=== PATIENT | female | born 1990 | race Caucasian/White ===

== ENCOUNTER 2023-07-23 16:32 | Inpatient (IN) | payer OTHER, SELFPAY ==
--- NOTE | ~2023-07-23 | CT_ITS ---
EXAMINATION: CT FACIAL BONES WITH CONTRAST CLINICAL INFORMATION: Facial swelling, dental pain COMPARISON: MRI brain on 01/27/2019. TECHNIQUE: Multidetector CT acquisition of the maxillofacial region is obtained with 85 mL Omnipaque 350. Multiplanar reformats are acquired and utilized for image interpretation. This CT examination was performed using dose optimization techniques as appropriate, variously including the following: *Automated exposure control *Adjustment of mA and/or kV according to patient size (this includes techniques or standardized protocols for targeted exams where dose is matched to indication/reason for exam; i.e. extremities or head) *Use of iterative reconstruction technique DLP: 454 mGy-cm FINDINGS: There is inflammatory stranding involving the soft tissues along the right mandible and crossing midline to involve the left premandibular fascia. There is associated mild thickening of the overlying skin. No fluid or gas collection identified. Multiple bilateral level Ia and II lymph nodes. For reference, 9 mm right level Ia node and 10 mm level IIa nodes. Multifocal dental caries are seen involving multiple maxillary and mandibular tooth. No periapical lucencies. Mild mucosal thickening of the bilateral maxillary sinuses. The remaining paranasal sinuses as well as the major drainage pathways are patent. No polypoid soft tissues within the nasal cavities. There is perforation of the anterior cartilaginous nasal septum (series 3, image 157 of 205). Fovea ethmoidalis and olfactory grooves are symmetric in depth. The bony orbits are intact. Internal carotid arteries remain well covered with bone. Mastoid air cells and middle ear cavities are clear. The TMJs are normal. CT/CT facial bones w IV con IMPRESSION: -Inflammatory stranding involving the subdermal tissues along the right mandible and crossing midline to involve the left premandibular fascia, suspicious for cellulitis. No fluid or gas collection identified. -Multifocal dental caries involving multiple maxillary and mandibular teeth. -Perforation of the anterior cartilaginous nasal septum. Differential considerations include idiopathic, trauma, and chronic inflammatory conditions among others.
--- NOTE | ~2023-07-23 | XR_ITS ---
EXAMINATION: XR CHEST 6:52 PM CLINICAL INFORMATION: Shortness of breath and cough COMPARISON: None available. TECHNIQUE: Frontal view of the chest was obtained. FINDINGS: No significant abnormality is noted involving the heart, lungs, mediastinum, bony thorax or soft tissues. XR/XR chest 1V IMPRESSION: Unremarkable examination.
[2023-07-23 16:50] VITALS: BP 110/61; PULSE 65; TEMP 36.1
[2023-07-23 17:28] VITALS: BMI 27.3
[2023-07-23 20:44] VITALS: BP 104/58; PULSE 69; TEMP 36.4; O2SAT 99
[2023-07-23 20:45] VITALS: BMI 28.5
[2023-07-23 21:15] VITALS: BP 110/60; PULSE 65
[2023-07-23] MEDS: Ibuprofen 600 MG TABLET PO (21:25)
[2023-07-23] MEDS: cloNIDine HCL 0.1 MG TABLET PO (21:25)
[2023-07-23] MEDS: LORazepam 1 MG TABLET PO (21:25)
[2023-07-23] MEDS: Doxepin HCl 10 MG CAPSULE PO (21:25)
[2023-07-23] MEDS: QUEtiapine Fumarate 300 MG TABLET PO (21:25)
[2023-07-24] MEDS: hydrOXYzine HCL 25 MG TABLET PO ×2 (02:20→20:38)
[2023-07-24] MEDS: Acetaminophen 325 MG TABLET 650 MG PO (02:20)
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
--- NOTE | 2023-07-24 03:42 | PC.ADMIT ---
admission note continued-methadone dose will need to be verified in the AM. patient did sign release to obtain information. Methadone 175 mg was administer at [facility] during ER stay. medications verified via the pharmacy/[facility] records and with patient input.
--- NOTE | 2023-07-24 05:53 | PC.NURSE ---
methadone-[facility] notified that patient was admitted and methadone 175mg verified. Janae was aware patient had been at [facility] prior to admission to .
--- NOTE | 2023-07-24 06:28 | HE.PHANOTE ---
Pharmacy received patients methadone verification form. Patient last doses 175 mg with [facility] on 07/22
[2023-07-24] MEDS: Ibuprofen 600 MG TABLET PO ×2 (06:55→14:38)
[2023-07-24 07:43] VITALS: BP 112/65; PULSE 75; RESP 16; TEMP 36.6; O2SAT 99
[2023-07-24] MEDS: Venlafaxine HCl ER 75 MG CAP.ER.24H PO (09:04)
[2023-07-24] MEDS: LORazepam 1 MG TABLET PO (09:05)
[2023-07-24] MEDS: methADONE HCl 20 MG/2 ML ORAL.CONC 175 MG PO (09:06)
[2023-07-24 09:31] LABS: Estimated Average Glucose 105 mg/dL; Hemoglobin A1c % 5.3 % (<6.0)
[2023-07-24 09:56] LABS: Albumin Level 3.4 g/dL (3.5-5.0); Alkaline Phosphatase 53 U/L (39-117); Anion Gap 15 (12-20); Aspartate Amino Transferase 24 U/L (5-31); Bilirubin Total 0.2 mg/dL (0.0-1.0); Blood Urea Nitrogen 15 mg/dL (9-16); Carbon Dioxide 18 mmol/L (22-29); Chloride 106 mmol/L (96-108); Cholesterol 157 mg/dL (<200); Creatinine Clr Calc Pharmacy 153.4; Estimated Glomerular Filt Rate > 60; Glucose Fasting 134 mg/dL (60-99); HDL Cholesterol 36 mg/dL (>40); LDL Cholesterol Calculated 45 mg/dL (<100); Potassium 4.4 mmol/L (3.3-5.1); Sodium 135 mmol/L (135-145); Triglycerides 380 mg/dL (<150)
[2023-07-24 09:58] LABS: Alanine Aminotransferase 24 U/L (0-31)
[2023-07-24 10:10] LABS: Thyroid Stimulating Hormone 1.98 uIU/mL (0.32-4.0)
[2023-07-24 10:20] LABS: Vitamin B12 510 pg/mL (200-900)
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
[2023-07-24] MEDS: cloNIDine HCL 0.1 MG TABLET PO ×2 (14:38→20:38)
[2023-07-24] MEDS: Amoxicillin/Potassium Clav 875 MG TABLET PO ×2 (14:38→20:38)
[2023-07-24] MEDS: Benzocaine 20 % Oral Gel 9 GM TUBE 1 APPL MUCOUS MEM (14:39)
[2023-07-24 20:08] VITALS: BP 121/69; PULSE 69; RESP 15; TEMP 35.8; O2SAT 100
[2023-07-24] MEDS: Doxepin HCl 10 MG CAPSULE PO (20:37)
[2023-07-24] MEDS: QUEtiapine Fumarate 300 MG TABLET PO (20:38)
[2023-07-25] MEDS: Benzocaine 20 % Oral Gel 9 GM TUBE 1 APPL MUCOUS MEM (05:34)
[2023-07-25 07:00] VITALS: BMI 27.9
[2023-07-25 07:14] VITALS: BP 122/65; PULSE 77; RESP 16; TEMP 36.4; O2SAT 96
[2023-07-25] MEDS: Venlafaxine HCl ER 75 MG CAP.ER.24H PO (08:18)
[2023-07-25] MEDS: Amoxicillin/Potassium Clav 875 MG TABLET PO ×2 (08:18→21:17)
[2023-07-25] MEDS: methADONE HCl 20 MG/2 ML ORAL.CONC 175 MG PO (08:21)
[2023-07-25 10:58] LABS: Adenovirus PCR Not Detected (Not Detect.); Bordetella parapertussis PCR Not Detected (Not Detect.); Bordetella pertussis PCR Not Detected (Not Detect.); Chlamydia pneumoniae PCR Not Detected (Not Detect.); Coronavirus 229E PCR Not Detected (Not Detect.); Coronavirus HKU1 PCR Not Detected (Not Detect.); Coronavirus NL63 PCR Not Detected (Not Detect.); Coronavirus OC43 PCR Not Detected (Not Detect.); Human metapneumovirus PCR Not Detected (Not Detect.); Influenza A PCR Not Detected (Not Detect.); Influenza B PCR Not Detected (Not Detect.); Mycoplasma pneumoniae PCR Not Detected (Not Detect.); Parainfluenza 1 PCR Not Detected (Not Detect.); Parainfluenza 2 PCR Not Detected (Not Detect.); Parainfluenza 3 PCR Not Detected (Not Detect.); Parainfluenza 4 PCR Not Detected (Not Detect.); RSV PCR Not Detected (Not Detect.); Rhino/Enterovirus PCR Detected (Not Detect.)
[2023-07-25 11:14] LABS: SARS-CoV-2 PCR Not Detected (Not Detect.)
[2023-07-25] MEDS: hydrOXYzine HCL 25 MG TABLET PO ×2 (12:09→21:17)
[2023-07-25] MEDS: QUEtiapine Fumarate 100 MG TABLET PO ×2 (12:09→15:34)
[2023-07-25 15:00] VITALS: PULSE 107
[2023-07-25] MEDS: cloNIDine HCL 0.1 MG TABLET PO ×2 (15:35→21:16)
[2023-07-25] MEDS: guaiFENesin 200 MG/10 ML 10 ML LIQUID PO (15:36)
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
--- NOTE | 2023-07-25 18:21 | PC.NURSE ---
Patient approached staff reporting her front tooth broke. Able to show piece of tooth. Dr. Farfan notified.
[2023-07-25 21:00] VITALS: BP 126/70; PULSE 88; RESP 18; O2SAT 98
[2023-07-25] MEDS: Doxepin HCl 10 MG CAPSULE PO (21:16)
[2023-07-25] MEDS: QUEtiapine Fumarate 400 MG TABLET PO (21:16)
[2023-07-25] MEDS: Ibuprofen 600 MG TABLET PO (21:19)
[2023-07-25 21:37] VITALS: PULSE 88
[2023-07-26 08:05] VITALS: BP 122/69; PULSE 78; RESP 16; TEMP 36.4; O2SAT 100
[2023-07-26] MEDS: Amoxicillin/Potassium Clav 875 MG TABLET PO ×2 (08:06→21:32)
[2023-07-26] MEDS: Venlafaxine HCl ER 150 MG CAP.ER.24H PO (08:07)
[2023-07-26] MEDS: methADONE HCl 20 MG/2 ML ORAL.CONC 175 MG PO (08:09)
[2023-07-26 08:13] VITALS: PULSE 78
[2023-07-26] MEDS: Ibuprofen 600 MG TABLET PO (08:25)
[2023-07-26] MEDS: guaiFENesin 200 MG/10 ML 10 ML LIQUID PO (08:26)
[2023-07-26 11:10] VITALS: BP 122/60; PULSE 87
[2023-07-26] MEDS: cloNIDine HCL 0.1 MG TABLET PO ×2 (11:13→17:54)
[2023-07-26] MEDS: QUEtiapine Fumarate 100 MG TABLET PO ×2 (11:14→17:54)
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
[2023-07-26 17:51] VITALS: BP 120/56; PULSE 99; RESP 16; TEMP 36.7; O2SAT 98
[2023-07-26 21:15] VITALS: BP 119/52; PULSE 95; RESP 18; TEMP 36.2; O2SAT 99
[2023-07-26] MEDS: Doxepin HCl 10 MG CAPSULE PO (21:32)
[2023-07-26] MEDS: QUEtiapine Fumarate 400 MG TABLET PO (21:32)
[2023-07-26] MEDS: cloNIDine HCL 0.2 MG TABLET PO (21:32)
[2023-07-27 08:45] VITALS: BP 142/59; PULSE 81; RESP 16; TEMP 36.1; O2SAT 98
[2023-07-27] MEDS: Amoxicillin/Potassium Clav 875 MG TABLET PO (08:50)
[2023-07-27] MEDS: Venlafaxine HCl ER 150 MG CAP.ER.24H PO (08:50)
[2023-07-27] MEDS: methADONE HCl 20 MG/2 ML ORAL.CONC 175 MG PO (08:52)
[2023-07-27] MEDS: cloNIDine HCL 0.1 MG TABLET PO ×2 (09:13→15:23)
[2023-07-27] MEDS: QUEtiapine Fumarate 100 MG TABLET PO ×2 (09:14→15:23)
[2023-07-27] MEDS: Ibuprofen 600 MG TABLET PO (09:15)
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
[2023-07-27 11:44] LABS: MANUAL DIFF FLAG NO
[2023-07-27 11:51] LABS: Basophils Absolute Auto 0.1 X10*3/uL (0.0-0.2); Basophils Percent Auto 0.8 % (0-2); Eosinophils Absolute Auto 0.2 X10*3/uL (0.0-0.4); Eosinophils Percent Auto 3.2 % (0-4); Hematocrit 39.6 % (37.0-47.0); Hemoglobin 12.6 g/dl (12.0-16.0); Imm Gran Abs Auto 0.32 X10*3/uL (0.00-0.03); Imm Gran Pct Auto 4.4 % (0.0-0.4); Lymphocytes Absolute Auto 3.3 X10*3/uL (1.2-4.9); Lymphocytes Percent Auto 45.4 % (20-40); Mean Corpuscular HGB Conc 31.8 g/dl (31.0-35.0); Mean Corpuscular Volume 84.8 fL (80.0-98.0); Mean Platelet Volume 9.8 fL (9.4-12.3); Monocytes Absolute Auto 0.5 X10*3/uL (0.1-1.2); Monocytes Percent Auto 6.9 % (2-11); NRBC Pct Auto 1.3 /100WBC (0.0-0.2); Neutrophils Absolute Auto 2.8 x10*3/uL (2.0-8.3); Neutrophils Percent Auto 39.3 % (45-73); Platelet Count 187 X10*3/uL (160-400); Red Blood Count 4.67 X10*6/uL (4.20-5.50); Red Cell Distribution Width 14.5 % (11.0-16.0); White Blood Count 7.2 X10*3/uL (4.8-10.8)
--- NOTE | 2023-07-27 12:04 | ECG_ITS ---
Test Reason : check qtc Blood Pressure : / mmHG Vent. Rate : 068 BPM Atrial Rate : 068 BPM P-R Int : 166 ms QRS Dur : 084 ms QT Int : 438 ms P-R-T Axes : 072 057 052 degrees QTc Int : 465 ms Normal sinus rhythm Normal ECG No previous ECGs available absent v6 Referred By: Denice Verduzco Electronically Signed By:CL PADILLA MD
[2023-07-27] MEDS: guaiFENesin 200 MG/10 ML 10 ML LIQUID PO (12:08)
[2023-07-27] MEDS: Benzonatate 100 MG CAPSULE PO (12:08)
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
[2023-07-27] MEDS: Acetaminophen 325 MG TABLET 650 MG PO ×2 (13:26→21:24)
[2023-07-27] MEDS: Ibuprofen 800 MG TABLET PO ×2 (13:27→21:23)
[2023-07-27] MEDS: levoFLOXacin 750 MG TABLET PO (13:29)
[2023-07-27] MEDS: iohexoL 350 MG/ML 100 ML INFUS..BTL IV (14:17)
[2023-07-27 15:20] VITALS: BP 112/54; PULSE 73
--- NOTE | 2023-07-27 17:51 | PC.NURSE ---
Reported right sided facial pain this am due to broken tooth right lower. Rated pain #6 on scale 1-10(10 worse) and received Ibuprofen 600mg po at 0915. Augmentin prescribed, dose #[address] Traylor notified of continued tooth pain with report of slight right sided facial swelling. Afebrile, temp 97.0 temporal. Hospitalist consult ordered. Rated right sided facial pain #4 when reassessed at 1100. earl Doyleist up to evaluate at 1120.Tooth extraction/possible root canal required per hospitalist assessment. lore Doyle, in contact with Dr Traylor, covering psych prescriber. CBCD, Levaquin, Ibuprofen dosage increased ,EKG due to Levaquin order, CT scan with contrast face ordered. Hospitalist recommendation: given Ibuprofen with Tylenol when given prn and utilize prn Oragel. Ibuprofen 800 mg and Tylenol 650 mg given po at 1327 for right sided facial pain #5 on scale 1-10(10 worse), Levaquin 750mg po initiated after reviewing administration time with lore Doyle. IV #20 gauge placed in right posterior wrist at 1357 by ICU nurse, Lizzy. Pt tolerated well. Tolerated CT scan face well. All test results reviewed by lore Doyle. Levaquin to continue, full liquid diet for comfort, and can cover area with moistened warm gauze to prevent air from getting to area increasing sensitivity
[2023-07-27 21:05] VITALS: BP 105/57; PULSE 68; RESP 16; TEMP 36.3; O2SAT 100
[2023-07-27] MEDS: QUEtiapine Fumarate 400 MG TABLET PO (21:23)
[2023-07-27] MEDS: Doxepin HCl 10 MG CAPSULE PO (21:23)
[2023-07-27] MEDS: cloNIDine HCL 0.2 MG TABLET PO (21:23)
[2023-07-28 08:24] VITALS: BP 108/54; PULSE 68; RESP 16; TEMP 36.1; O2SAT 100
[2023-07-28] MEDS: methADONE HCl 20 MG/2 ML ORAL.CONC 175 MG PO (08:37)
[2023-07-28] MEDS: Venlafaxine HCl ER 150 MG CAP.ER.24H PO (08:43)
[2023-07-28] MEDS: Ibuprofen 800 MG TABLET PO (08:56)
[2023-07-28] MEDS: Acetaminophen 325 MG TABLET 650 MG PO ×2 (08:56→15:50)
[2023-07-28] MEDS: QUEtiapine Fumarate 100 MG TABLET PO ×2 (08:57→15:51)
[2023-07-28] MEDS: cloNIDine HCL 0.1 MG TABLET PO ×2 (08:57→15:50)
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
[2023-07-28 09:48] LABS: HCV Log PCR 3.71 Log IU/mL (NOT DETECTED); HepC Viral Load 5150 IU/mL (NOT DETECTED)
[2023-07-28] MEDS: levoFLOXacin 750 MG TABLET PO (12:09)
[2023-07-28 15:48] VITALS: BP 101/54; PULSE 77; RESP 16; TEMP 36.2; O2SAT 99
[2023-07-28 19:50] VITALS: BP 106/53; PULSE 76; RESP 15; TEMP 36.3; O2SAT 99
[2023-07-28] MEDS: cloNIDine HCL 0.2 MG TABLET PO (21:17)
[2023-07-28] MEDS: Doxepin HCl 25 MG CAPSULE PO (21:17)
[2023-07-28] MEDS: QUEtiapine Fumarate 400 MG TABLET PO (21:17)
--- NOTE | 2023-07-28 21:55 | PC.NURSE ---
Alyssa is A/O. Ordered full liquid diet on the 28[address] head [address], with DX cellulites of right maxillary, treatment plan of possible extraction/root canal. Denies pain or discomfort with chewing, reports she is hungry. Went to bed after HS meds, continues to be isolating, withdrawn, guarded with limited engagement 1:1. No behavior issues, safe on the unit.
[2023-07-29] MEDS: guaiFENesin 200 MG/10 ML 10 ML LIQUID PO (02:20)
[2023-07-29] MEDS: Throat Lozenge, Medicated LOZENGE 1 LOZENGE MUCOUS MEM (02:20)
[2023-07-29] MEDS: Venlafaxine HCl ER 150 MG CAP.ER.24H PO (08:26)
[2023-07-29] MEDS: methADONE HCl 20 MG/2 ML ORAL.CONC 175 MG PO (08:27)
[2023-07-29] MEDS: cloNIDine HCL 0.1 MG TABLET PO ×2 (08:58→16:03)
[2023-07-29] MEDS: QUEtiapine Fumarate 100 MG TABLET PO ×2 (08:58→16:04)
[2023-07-29 09:03] VITALS: BP 107/77; PULSE 97; RESP 16; TEMP 36.2; O2SAT 99
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
[2023-07-29] MEDS: levoFLOXacin 750 MG TABLET PO (12:42)
--- NOTE | 2023-07-29 18:05 | PC.NURSE ---
Patient diet changed to soft.
[2023-07-29 20:10] VITALS: BP 104/51; PULSE 71; RESP 15; TEMP 36.5; O2SAT 100
[2023-07-29] MEDS: cloNIDine HCL 0.2 MG TABLET PO (20:51)
[2023-07-29] MEDS: Doxepin HCl 25 MG CAPSULE PO (20:51)
[2023-07-29] MEDS: QUEtiapine Fumarate 400 MG TABLET PO (20:51)
[2023-07-29] MEDS: Ibuprofen 800 MG TABLET PO (20:55)
[2023-07-29] MEDS: Acetaminophen 325 MG TABLET 650 MG PO (20:55)
[2023-07-30 07:20] VITALS: BP 95/45; PULSE 78; TEMP 36.2; O2SAT 100
[2023-07-30] MEDS: Venlafaxine HCl ER 150 MG CAP.ER.24H PO (08:58)
[2023-07-30] MEDS: methADONE HCl 20 MG/2 ML ORAL.CONC 175 MG PO (08:59)
[2023-07-30] MEDS: QUEtiapine Fumarate 100 MG TABLET PO (09:56)
--- NOTE | 2023-07-30 10:03 | PC.NURSE ---
Alyssa is alert, fully oriented, pleasant and cooperative with care. She denies ideation, plan or intent to harm self or others. She verbalizes understanding of discharge plan including appointments and medications.
== END 2023-07-30 10:31 | disposition home or self-care (01) | DRG 755 ==
LOC: HO.PM5 19:34 → HO.PADLT16 19:35
PROVIDERS: Clinical Nurse Specialist Psychiatric/Mental Health, Adult; Physician Assistant; Admitting Provider Psychiatry & Neurology Psychiatry; PCP Family Medicine; Visit Provider Psychiatry & Neurology Psychiatry
DX: F43.12 Post-traumatic stress disorder, chronic (principal); R45.851 Suicidal ideations; F11.20 Opioid dependence, uncomplicated; F17.210 Nicotine dependence, cigarettes, uncomplicated; F14.20 Cocaine dependence, uncomplicated; J20.6 Acute bronchitis due to rhinovirus; K08.89 Other specified disorders of teeth and supporting structures; F19.10 Other psychoactive substance abuse, uncomplicated; Z59.01 Sheltered homelessness; Z71.6 Tobacco abuse counseling; Z20.822 Contact with and (suspected) exposure to COVID-19; Z79.899 Other long term (current) drug therapy
CPT/HCPCS: 36415; 70487; 71045; 80053; 80061; 82607; 82746; 83036; 84443; 85025; 87522; 87633; 93005; Q9967

== ENCOUNTER → 2023-07-23 16:32 | Outpatient (BNV) | payer OTHER, SELFPAY | PROVIDERS: Admitting Provider Psychiatry & Neurology Psychiatry; PCP Family Medicine; Visit Provider Physician Assistant | DX: Z02.2 Encounter for examination for admission to residential institution (principal) | CPT/HCPCS: 99429; 99499 ==

== ENCOUNTER → 2023-07-23 16:32 | Outpatient (BNV) | payer OTHER, SELFPAY | PROVIDERS: Admitting Provider Psychiatry & Neurology Psychiatry; PCP Family Medicine; Visit Provider Psychiatry & Neurology Psychiatry | DX: F14.20 Cocaine dependence, uncomplicated (principal); F11.20 Opioid dependence, uncomplicated; F43.12 Post-traumatic stress disorder, chronic | CPT/HCPCS: 99231; 99232; 99233 ==

== ENCOUNTER 2023-09-03 01:45 | Emergency (ER) | payer OTHER, SELFPAY ==
--- NOTE | ~2023-09-03 | XR_ITS ---
EXAMINATION: XR CHEST CLINICAL INFORMATION: Cough. COMPARISON: 07/24/2023. TECHNIQUE: 2 views of the chest were obtained. FINDINGS: No significant abnormality is noted involving the heart, lungs, mediastinum, bony thorax or soft tissues. XR/XR chest 2V IMPRESSION: Unremarkable examination.
[2023-09-03 02:07] VITALS: BP 137/67; PULSE 72; RESP 16; TEMP 36.7; O2SAT 99; BMI 26.6
[2023-09-03 04:15] LABS: Influenza A PCR NEGATIVE (Negative); Influenza B PCR NEGATIVE (Negative); Resp Syncy Virus RNA Qual PCR NEGATIVE (Negative); SARS COV2 PCR INHOUSE NEGATIVE (Negative)
[2023-09-03 04:52] VITALS: BP 131/86; PULSE 68; RESP 14; TEMP 36.5; O2SAT 100
--- NOTE | 2023-09-03 05:17 | ED_ITS ---
HPI - URI/Sore Throat General Chief Complaint: Upper Respiratory Symptoms Stated Complaint: flu like symptoms Time Seen by Provider: 09/03/23 05:14 Source: patient Mode of arrival: ambulatory Limitations: no limitations History of Present Illness HPI Narrative: 32 yo female with hx of opiate use disorder, smoker, PTSD here with cough for 2 weeks some chills - has no INH, no travel no sick contacts no getting better. MD elicited complaint: cough Pertinent past history: asthma Onset (ago): week(s) (2) Consistency: constant Severity: moderate Description of mucous: clear and yellow Able to tolerate fluids by mouth: Yes Exacerbating factors: other (coughing) Relieving factors: nothing Associated symptoms: chills, cough and shortness of breath Treatments prior to arrival: none Related Data Home Medications Medication Instructions Recorded Confirmed methadone 175 mg PO DAILY 07/24/23 07/24/23 Previous Rx's Medication Instructions Recorded clonidine HCl 0.2 mg tablet 0.2 mg PO QID PRN anxiety 30 days 07/29/23 #120 tabs doxepin 25 mg capsule 25 mg PO BEDTIME 30 days #30 caps 07/29/23 ibuprofen 600 mg tablet 600 mg PO Q6H PRN moderate pain 30 07/29/23 days #120 tabs levofloxacin 750 mg tablet 750 mg PO DAILY #4 tabs 07/29/23 quetiapine 100 mg tablet 100 mg PO BID PRN anxiety 30 days 07/29/23 #60 tabs quetiapine 400 mg tablet 400 mg PO BEDTIME 30 days #30 tabs 07/29/23 venlafaxine 150 mg 150 mg PO DAILY 30 days #30 caps 07/29/23 capsule,extended release 24 hr albuterol sulfate 90 mcg/actuation 2 puff inhalation Q4H PRN 09/03/23 aerosol inhaler shortness of breath or wheezing #6.7 grams azithromycin 250 mg tablet See Rx Instructions PO .COMPLEX #6 09/03/23 tabs prednisone 20 mg tablet 40 mg (2 x 20 mg) PO DAILY 5 days 09/03/23 #10 tabs Allergies Allergy/AdvReac Type Severity Reaction Status Date / Time No Known Allergies Allergy Unverified 06/16/20 19:19 [No Known Allergies*] Review of Systems Review of Systems: Constitutional : No Fever, No Chills ENT/Mouth : No Hoarseness, No sore throat, No Rhinorrhea Eyes: No Redness, No Discharge, No Vision Changes Cardiovascular : No Chest Pain, positive SOB, positive Dyspnea on Exertion, No Edema Respiratory : positive Cough, pos Sputum, positive Wheezing, Gastrointestinal : No Nausea, No Vomiting, No Diarrhea, No abdominal Pain Genitourinary : No Dysuria, No Hematuria Musculoskeletal : No joint pain, No Myalgias Skin : No rash Neuro : No Weakness, No Numbness, No Headache Psych : No anxiety, depression Heme/Lymph: No Bruising, No Bleeding Endocrine : No Polyuria, No Polydipsia All other systems reviewed and are negative [facility] [place] Past Medical History Attestation statement: The following information was validated with the patient. Source: old records reviewed Medical History Routine medical exam Polysubstance abuse Opioid dependence Social History Social History Household Members: None Household Members Other:: retirement room Housing: Apartment Do you presently have visiting nurse or other home services: No Patient Tobacco Use Status: Current everyday Tobacco user Tobacco use type: Cigar Cigarette Packs Per Day: 0.5 Cigarettes Per Day: 10.0 Years Smoked: ''a few years'' e-Cigarette/Vaping Use: Never Used Substance Use Type: Crack/Cocaine Advance Directives: Yes Advance Directives Information Provided: Yes Advance Directives on File: No service: No Sexual orientation: Straight/Heterosexual Physical Exam Vital Signs: Vital Signs: Last Vital Signs Temp 97.7 F 09/03/23 04:52 Pulse 68 09/03/23 04:52 Resp 14 09/03/23 04:52 BP 131/86 09/03/23 04:52 Pulse Ox 100 09/03/23 04:52 O2 Del Method Room Air 09/03/23 04:52 BMI result Body Mass Index 26.6 Appearance: Alert. Oriented X3. No acute distress. Eyes: Pupils equal, round and reactive to light. ENT: Pharynx normal. Neck: Normal inspection. Neck supple. CVS: Normal heart rate and rhythm. Pulses normal. Respiratory: No respiratory distress. Breath sounds mild diffuse rhonchi noted Abdomen: Soft and nontender. Skin: Skin warm and dry. Normal skin color. Normal skin turgor. Extremities: No lower extremity edema. No calf ttp Neuro: Oriented X 3. No motor deficit. No sensory deficit. Medical Decision Making Medical Decision Making [facility] Narrative: 32 yo female with hx of opiate use disorder, smoker, PTSD at this time persistent cough x 2 weeks with chills hx of asthma but has no INH will start on INH, steroids and zpak for likely bronchitis - not toxic, no hypoxia, no pneumonia on CXR Differential Diagnosis Differential Diagnoses: The differential diagnosis associated with the presentation includes bronchitis, pneumonia, RAD Admission/Observation Consideration of admission/observation: Escalation of care including admission/observation considered not toxic, no hypoxia, no resp distress Lab Data [facility] Lab Attestation statement: I reviewed the patient's lab results. Labs: Lab Results 09/03/23 Range/Units 03:32 Influenza Type A (PCR) NEGATIVE (Negative) Influenza Type B (PCR) NEGATIVE (Negative) RSV RNA Qual (PCR) NEGATIVE (Negative) SARS-CoV-2 RNA (RT-PCR) NEGATIVE (Negative) Independent Interpretation I performed an independent interpretation of an: Plain X-Ray (no pneumonia) Radiology Impression Discussion of test interpretation with radiology: I have reviewed the radiologist's reading. External Record Review External record reviewed: Inpatient record Prescription Management I considered prescription management with: Antibiotic and Other Discharge Plan Discharge Clinical Impression: Bronchitis Patient Disposition: Home, Self-Care Instructions: Acute Bronchitis (ED) Additional Instructions: normal chest xray and negative viral swabs, decrease your smoking. return for worsening cough, fevers, difficulty breathing or any other concerns. Prescriptions: New azithromycin 250 mg tablet See Rx Instructions .ROUTE .COMPLEX Qty: 6 0RF Rx Instructions: For 250 mg dose pack: take 500 mg today (day 1), then 250 mg for 4 days (days 2-5) prednisone 20 mg tablet 40 mg PO DAILY 5 Days Qty: 10 0RF albuterol sulfate 90 mcg/actuation HFA aerosol inhaler 2 puff inhalation Q4H PRN (Reason: shortness of breath or wheezing) Qty: 6.7 0RF No Action methadone 175 mg PO DAILY Rx Instructions: confirmed at methadone clinic [address] [place] [address] doxepin 25 mg Capsule 25 mg PO BEDTIME 30 Days Qty: 30 0RF venlafaxine 150 mg Capsule,Extended Release 24hr 150 mg PO DAILY 30 Days Qty: 30 0RF quetiapine 400 mg Tablet 400 mg PO BEDTIME 30 Days Qty: 30 0RF quetiapine 100 mg tablet 100 mg PO BID PRN (Reason: anxiety) 30 Days Qty: 60 0RF clonidine HCl 0.2 mg tablet 0.2 mg PO QID PRN (Reason: anxiety) 30 Days Qty: 120 0RF ibuprofen 600 mg tablet 600 mg PO Q6H PRN (Reason: moderate pain) 30 Days Qty: 120 0RF levofloxacin 750 mg tablet 750 mg PO DAILY Qty: 4 0RF
[2023-09-03] MEDS: Albuterol Sulfate 90 MCG 8 GM INHALER 2 PUFF INHALE (05:32)
== END 2023-09-03 05:44 | disposition home or self-care (01) ==
PROVIDERS: Emergency Provider Emergency Medicine
DX: J40 Bronchitis, not specified as acute or chronic (principal); R06.02 Shortness of breath; R05.9 Cough, unspecified; F17.210 Nicotine dependence, cigarettes, uncomplicated; Z20.822 Contact with and (suspected) exposure to COVID-19; Z20.828 Contact with and (suspected) exposure to other viral communicable diseases; Z71.6 Tobacco abuse counseling
CPT/HCPCS: 0241U; 71046; 99283; 99284

== ENCOUNTER 2023-11-13 00:46 | Emergency (ER) | payer OTHER, SELFPAY ==
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
[2023-11-13 00:47] VITALS: BP 115/74; PULSE 82; RESP 18; TEMP 36.8; O2SAT 99; BMI 29.6
[2023-11-13 01:36] LABS: UPreg QC Valid YES; Urine Pregnancy NEGATIVE (NEGATIVE)
[2023-11-13 03:24] VITALS: BP 118/70; PULSE 92; RESP 18; TEMP 37; O2SAT 98
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
[2023-11-13] MEDS: Acetaminophen 325 MG TABLET 975 MG PO (04:44)
[2023-11-13] MEDS: Ibuprofen 400 MG TABLET PO (04:46)
--- NOTE | 2023-11-13 04:55 | PC.NURSE ---
Medicated per mar, reviewed discharge instruction with pt. pt verbalized understanding, no sign of distress.
== END 2023-11-13 05:00 | disposition home or self-care (01) ==
PROVIDERS: Emergency Provider Student in an Organized Health Care Education/Training Program
DX: Z04.1 Encounter for examination and observation following transport accident (principal); M79.18 Myalgia, other site; F17.200 Nicotine dependence, unspecified, uncomplicated
CPT/HCPCS: 70450; 71045; 72125; 81025; 99284

== ENCOUNTER 2024-01-07 13:41 | Inpatient (IN) | payer OTHER, SELFPAY ==
[2024-01-07 14:10] VITALS: BP 127/90; PULSE 74; O2SAT 97
[2024-01-07 14:43] VITALS: BP 151/68; PULSE 66; RESP 18; TEMP 36.6; O2SAT 100; BMI 25.5
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
[2024-01-07] MEDS: diphenhydrAMINE HCL 50 MG/ML VIAL IM (15:46)
[2024-01-07] MEDS: Metoclopramide HCl 10 MG/2 ML VIAL IM (15:46)
[2024-01-07] MEDS: methADONE HCl 20 MG/2 ML ORAL.CONC 40 MG PO (16:05)
--- NOTE | 2024-01-07 16:43 | HE.PHANOTE ---
Methadone 205 mg verified with [facility] 01/07/24
[2024-01-07 17:09] LABS: Appearance Urine Cloudy; Color Urine Dark Yellow; Glucose Urine UA Negative (Negative); Leukocyte Esterase Urine Trace (Negative); Nitrite Urine Negative (Negative); PH >= 9.0 (5.0-9.0); Specific Gravity - Urine >= 1.030 (1.005-1.025); UMIC TRIGGER UACC YES; Urine Blood Negative (Negative); Urine Ketones 80 mg/dL (Negative); Urine Protein 100 (2+) mg/dL (Neg-Trace)
[2024-01-07 17:11] LABS: Hemoglobin 14.9 g/dl (12.0-16.0); Mean Corpuscular Volume 84.8 fL (80.0-98.0); PLT CLUMP 1; Red Cell Distribution Width 12.9 % (11.0-16.0); SCAN SMEAR FLAG 1
[2024-01-07 17:13] LABS: Basophils Percent Auto 0.2 % (0-2); Hematocrit 45.7 % (37.0-47.0); Imm Gran Abs Auto 0.03 X10*3/uL (0.00-0.03); Imm Gran Pct Auto 0.3 % (0.0-0.4); Lymphocytes Percent Auto 9.7 % (20-40); Mean Corpuscular HGB Conc 32.6 g/dl (31.0-35.0); Mean Corpuscular Hemoglobin 27.6 pg (27.0-33.0); Mean Platelet Volume 9.3 fL (9.4-12.3); Monocytes Absolute Auto 0.1 X10*3/uL (0.1-1.2); Monocytes Percent Auto 1.3 % (2-11); Neutrophils Absolute Auto 9.1 x10*3/uL (2.0-8.3); Neutrophils Percent Auto 88.5 % (45-73); Red Blood Count 5.39 X10*6/uL (4.20-5.50); UPreg QC Valid YES; Urine Pregnancy NEGATIVE (NEGATIVE)
[2024-01-07 17:19] LABS: Amphetamine Screen Urine Not Detected (Not Detect); Barbiturates, Urine Not Detected (Not Detect); Benzodiazepines Screen Urine Not Detected (Not Detect); Cannabinoid Screen Urine POSITIVE (Not Detect); Cocaine Screen Urine POSITIVE (Not Detect); Fentanyl, urine POSITIVE (Not Detect); Opiate Screen Urine POSITIVE (Not Detect); Phencyclidine Screen Urine Not Detected (Not Detect)
[2024-01-07 17:22] LABS: MANUAL DIFF FLAG NO; Platelet Count 248 X10*3/uL (160-400); White Blood Count 10.3 X10*3/uL (4.8-10.8)
[2024-01-07 17:24] LABS: Ethanol < 10 mg/dL
[2024-01-07 17:26] LABS: Alanine Aminotransferase 134 U/L (0-31); Albumin Level 4.7 g/dL (3.5-5.0); Alkaline Phosphatase 63 U/L (39-117); Anion Gap 17 (12-20); Aspartate Amino Transferase 115 U/L (5-31); Bacteria Urine Trace (None Seen); Blood Urea Nitrogen 14 mg/dL (9-16); Calcium 9.9 mg/dL (8.4-10.2); Carbon Dioxide 20 mmol/L (22-29); Chloride 107 mmol/L (96-108); Estimated Glomerular Filt Rate > 60; Glucose Random 130 mg/dL (60-115); Hyaline Casts Urine 0-2 /LPF (0-2); Lipase 9 U/L (8-78); Magnesium 2.2 mg/dL (1.6-2.6); Potassium 3.6 mmol/L (3.3-5.1); RBC Urine 0-2 /HPF (0-2); Sodium 140 mmol/L (135-145); Total Protein 9.1 g/dL (6.5-8.0); WBC Urine 0-5 /HPF (0-5)
[2024-01-07] MEDS: ondansetron HCL 4 MG/2 ML VIAL IM (17:26)
[2024-01-07 17:29] LABS: Salicylate < 5.0 mg/dL (15-30)
[2024-01-07 17:32] VITALS: BP 142/78; PULSE 57; RESP 16; TEMP 36.4; O2SAT 100
[2024-01-07] MEDS: methADONE HCl 20 MG/2 ML ORAL.CONC 165 MG PO (17:52)
[2024-01-07] MEDS: Magnesium Hydrox/Alum Hydrox 30 ML ORAL.SUSP 15 ML PO (18:02)
[2024-01-07] MEDS: LORazepam 2 MG/ML VIAL 1 MG IM (18:03)
--- NOTE | 2024-01-07 18:26 | PC.NURSE ---
pt a&o x3, calm, and cooperative. pt medicated multiple times for nausea/vomiting. pt then given 30 minutes before PO med administration. pt asked if she wanted to be medicated now with methadone if nausea subsided. pt educated that if she vomits up methadone, she will not be able to get more. pt agreed that she felt better and wanted to take methadone 30 min after nausea med administration. approximately 20-25 min after methadone dose given, pt vomited large amount of watery, non-bloody emesis on floor. pt now resting quietly on stretcher, blanket and jluis-bag given. MD pedro aware. plan of care ongoing.
--- NOTE | 2024-01-07 19:11 | ECG_ITS ---
Test Reason : GEN MED Blood Pressure : / mmHG Vent. Rate : 067 BPM Atrial Rate : 067 BPM P-R Int : 156 ms QRS Dur : 084 ms QT Int : 574 ms P-R-T Axes : 066 067 066 degrees QTc Int : 606 ms Normal sinus rhythm Minimal voltage criteria for LVH, may be normal variant ( Sokolow-Sommer ) Prolonged QT Abnormal ECG When compared with ECG of 27-JUL-2023 12:26, QT has lengthened Referred By: Emily Harrington Electronically Signed By:CE YOO MD
[2024-01-07] MEDS: LORazepam 2 MG/ML VIAL 1 MG IVPUSH (20:12)
[2024-01-07] MEDS: 0.9 % Sodium Chloride 1,000 ML 999 ML IV (20:15)
[2024-01-07] MEDS: Magnesium Sulfate/H2O 2 GM/50 ML PIGGYBACK IV (20:15)
[2024-01-07 20:44] VITALS: BP 132/89; PULSE 67; RESP 18; O2SAT 100
--- NOTE | 2024-01-07 20:46 | P.HPHOSP_ITS ---
History of Present Illness Date of Service: 01/07/24 Chief Complaint: Nausea and vomiting This is a 33-year-old female with pertinent history of IV polysubstance use disorder, PTSD who presents to the emergency department for evaluation of nausea and vomiting. Patient states she is here as she tried to self detox at home. Patient has been having multiple episodes of nausea and vomiting. No blood in vomitus. Admits anxiety but denies abdominal discomfort. No fever, chills. She last used IV heroin 1-2 days prior to presentation. States she lost took methadone 2 days ago. Is compliant with Seroquel and p.r.n. clonidine. No chest discomfort, palpitations, shortness of breath, changes in urinary or bowel habits. In the emergency department, patient was given p.o. methadone and IV lorazepam. She continued to have multiple episodes of nausea and vomiting and was unable to tolerate p.o.. Review of Systems 2 Constitutional: Constitutional: Reports fatigue and Reports malaise Cardiovascular: Cardiovascular: Reports no additional cardiovascular complaints Respiratory: Respiratory: Reports no additional respiratory complaints Gastrointestinal: Gastrointestinal: Reports nausea and Reports vomiting Genitourinary: Genitourinary: Reports no additional female genitourinary complaints Endocrine: Endocrine: Reports fatigue PMFSH Medical History Routine medical exam Polysubstance abuse Opioid dependence Pertinent family history: No family history of early CAD Social History Household Members: None Household Members Other:: [facility] room Housing: Apartment Do you presently have visiting nurse or other home services: No Patient Tobacco Use Status: Current everyday Tobacco user Tobacco use type: Cigar Cigarette Packs Per Day: 0.5 Cigarettes Per Day: 10.0 Years Smoked: ''a few years'' Smoked in Last 30 Days: Yes e-Cigarette/Vaping Use: Never Used Use of substances other than those prescribed or required for medical reasons: Yes Substance Use Type: Heroin Advance Directives: No Advance Directives Information Provided: No Nutrition Risks: No Nutritional Risk service: No Sexual orientation: Straight/Heterosexual Meds Allergies Allergy/AdvReac Type Severity Reaction Status Date / Time No Known Allergies Allergy Verified 01/07/24 14:45 [No Known Allergies*] Active Medications: Current Medications Magnesium Sulfate (Magnesium Sulfate/H2o) 2 gm in 50 mls @ 25 mls/hr IV ONCE ONE Stop: 01/07/24 21:42 Last Admin: 01/07/24 20:15 Dose: 25 mls/hr Sodium Chloride (Ns) 1,000 mls @ 100 mls/hr IVCONT .Q10H JOSESITO Potassium Chloride (Potassium Chloride/H20) 10 meq in 100 mls @ 100 mls/hr IV Q1H JOSESITO Stop: 01/08/24 00:44 Home Medications ?Medication ?Instructions ?Recorded ?Confirmed ?Last Taken ?Type methadone 175 mg PO DAILY 07/24/23 07/24/23 07/22/23 09:30 History Physical Exam 2 Vital Signs and Narrative: Vital Signs: Last Vital Signs Temp 97.5 F 01/07/24 17:32 Pulse 67 01/07/24 20:44 Resp 18 01/07/24 20:44 BP 132/89 01/07/24 20:44 Pulse Ox 100 01/07/24 20:44 O2 Del Method Room Air 01/07/24 20:44 BMI result Body Mass Index 25.5 Middle-aged female lying in bed in no distress Neck supple, no JVD Regular rate and rhythm, S1-S2 heard Regular breath sounds bilaterally, no wheezing or crackles appreciated Abdomen soft nontender, no guarding, no rigidity Patient is awake, alert and oriented to self, place, time and person ; no focal motor deficit Psych: Normal mood No pedal edema Results Labs 01/07/24 16:54 01/07/24 16:54 Labs: Laboratory Results - last 24 hr 01/07/24 16:54 MCV 84.8 MCH 27.6 MCHC 32.6 RDW 12.9 Plt Count 248 D MPV 9.3 L Immature Gran % (Auto) 0.3 Neut % (Auto) 88.5 H Lymph % (Auto) 9.7 L [place] % (Auto) 1.3 L Eos % (Auto) 0.0 Baso % (Auto) 0.2 Lymph # (Auto) 1.0 L [place] # (Auto) 0.1 Eos # (Auto) 0.0 Baso # (Auto) 0.0 Abs Immat Gran (auto) 0.03 Absolute Neuts (auto) 9.1 H Absolute Nucleated RBC 0.000 Nucleated RBC % (auto) 0.0 Anion Gap 17 Estim Creat Clear Calc 123.0 Estimated GFR > 60 Random Glucose 130 H Calcium 9.9 D Magnesium 2.2 Total Bilirubin 1.0 AST 115 H ALT 134 H Alkaline Phosphatase 63 Total Protein 9.1 H Albumin 4.7 Lipase 9 Urine Color Dark Yellow Urine Appearance Cloudy Urine pH >= 9.0 Ur Specific [place] >= 1.030 H Urine Protein 100 (2+) H Urine Glucose (UA) Negative Urine Ketones 80 Urine Blood Negative Urine Nitrite Negative Ur Leukocyte Esterase Trace H Urine RBC 0-2 Urine WBC 0-5 Ur Squamous Epith Cells 6-10 Urine Bacteria Trace Hyaline Casts 0-2 Urine Test NEGATIVE Salicylates < 5.0 L Urine Opiates Screen POSITIVE H Urine Fentanyl Screen POSITIVE H Ur Barbiturates Screen Not Detected Ur Phencyclidine Scrn Not Detected Ur Amphetamines Screen Not Detected U Benzodiazepines Scrn Not Detected Urine Cocaine Screen POSITIVE H U Marijuana (THC) Screen POSITIVE H Ethyl Alcohol < 10 Assessment and Plan (1) Intractable cyclical vomiting with nausea: Status: Acute (2) Opiate withdrawal: Status: Acute Plan This is a 33-year-old female with pertinent history of IV polysubstance use disorder, PTSD who presents to the emergency department for evaluation of nausea and vomiting #. Intractable nausea and vomiting due to opioid withdrawal: Supportive care. Received ativan and methadone in the ER. Cautious use of methadone due to prolonged QTc, consider buprenorphine. Clear liquid diet and advance as tolerated #. Polysubstance use disorder: Consulted addiction team. UDS positive for opiates, fentanyl, cocaine and marijuana #. Prolonged QTc: Patient is on quetiapine and methadone. Monitor on tele. IV magnesium and potassium ordered. Monitor electrolytes. Cardiology consulted. Cautious use of ondansetron, methadone, seroquel #. PTSD: Patient is on high dose of Seroquel-moderate risk for prolonged QTC. Consulting psych to optimize. Continue clonidine p.r.n. DVT prophylaxis: Lovenox Full code Admit as inpatient and will require two night minimum hospital stay for management of intractable nausea and vomiting, opiate withdrawal, hemodynamic monitoring in a patient with prolonged QTC (as above), which is not possible in a lesser acute setting. Specialist consult pending Quality Stroke Does the patient have a stroke diagnosis?: No VTE Prior VTE?: No VTE Risk Level:: Medical - moderate - high VTE Device Contraindication: Treatment Not Indicated VTE Drug Contraindication: N/A - Med Ordered
[2024-01-07] MEDS: Enoxaparin Sodium 40 MG/0.4 ML SYRINGE SUBCUT (21:30)
[2024-01-07] MEDS: Potassium Chloride/H20 10 MEQ/100 ML PIGGYBACK 100 MEQ IV ×3 (21:30→23:45)
[2024-01-07] MEDS: 0.9 % Sodium Chloride 1,000 ML 100 ML IVCONT (21:31)
[2024-01-07 21:52] LABS: Thyroid Stimulating Hormone 0.62 uIU/mL (0.32-4.0)
--- NOTE | 2024-01-07 22:15 | PHA.MEDREC ---
Pharmacy Consult ? Medication Reconciliation Pharmacy has completed the medication reconciliation. Patient said she is only taking clonidine and quetiapine 400 mg.
[2024-01-07] MEDS: Acetaminophen 325 MG TABLET 650 MG PO (22:44)
[2024-01-07] MEDS: cloNIDine HCL 0.2 MG TABLET PO (22:44)
[2024-01-07] MEDS: Metoclopramide HCl 10 MG/2 ML VIAL 5 MG IVPUSH (22:44)
--- NOTE | 2024-01-07 22:49 | MHC.EDTECH ---
in the room with the patient with the nurse, attempted to complete the EKG. Patient stated I'm going to refuse for now. RN aware due to being present for the statement
[2024-01-07] MEDS: QUEtiapine Fumarate 300 MG TABLET PO (23:01)
--- NOTE | 2024-01-07 23:46 | PC.NURSE ---
Pt medicated per nov. Plan of care ongoing.
[2024-01-08 00:37] VITALS: BP 136/80; PULSE 80; RESP 16; TEMP 36.6; O2SAT 97
--- NOTE | 2024-01-08 00:39 | MHC.EDTECH ---
This tech took over care of patient at 2300,hourly rounds and vitals completed,previous tech attempted to get an EKG,pt refused, This tech was able to get patient to agree to let me do the EKG and to place her in hospital attire, EKG taken per order and tiger texted to Hospitalist. Patient is resting at this time,boyfriend at bedside,call lee in reach
[2024-01-08] MEDS: Potassium Chloride/H20 10 MEQ/100 ML PIGGYBACK 100 MEQ IV (00:44)
--- NOTE | 2024-01-08 00:47 | PC.NURSE ---
Pt medicated per nov. Plan of care ongoing.
--- NOTE | 2024-01-08 02:31 | MHC.EDTECH ---
Hourly rounds completed,patient is sleeping,boyfriend at bedside in recliner,call lee in reach.
[2024-01-08 04:00] VITALS: BP 118/94; PULSE 78; RESP 16; TEMP 36.6; O2SAT 97
--- NOTE | 2024-01-08 04:22 | MHC.EDTECH ---
Hourly rounds and vitals completed,boyfriend at bedside and call lee in reach
[2024-01-08 06:00] VITALS: BP 136/84; PULSE 92; RESP 16; TEMP 36.6; O2SAT 97
[2024-01-08] MEDS: Metoclopramide HCl 10 MG/2 ML VIAL 5 MG IVPUSH (07:11)
[2024-01-08] MEDS: Acetaminophen 325 MG TABLET 650 MG PO (07:11)
[2024-01-08] MEDS: 0.9 % Sodium Chloride 1,000 ML 100 ML IVCONT (07:13)
[2024-01-08] MEDS: 0.9 % Sodium Chloride Flush 3 ML SYRINGE IVFLUSH (07:14)
--- NOTE | 2024-01-08 08:42 | PM.EVENT ---
Event Note Date of Service: 01/08/24 Event Note: Addiction note-chart reviewed Methadone dose verified on 01/07/2024 --205mg Admitted with intractable vomiting QTc prolonged at time of admission (604) Follow up EKG QTc has shortened (454) RN note shows patient c/o body aches and requesting methadone dose Plan: -home dose of 205mg ordered Time Spent With Patient Time: Total time managing care of this patient today ____ minutes.
--- NOTE | 2024-01-08 09:00 | ECG_ITS ---
Test Reason : PROLOGED QT Blood Pressure : / mmHG Vent. Rate : 079 BPM Atrial Rate : 079 BPM P-R Int : 148 ms QRS Dur : 080 ms QT Int : 396 ms P-R-T Axes : 076 053 057 degrees QTc Int : 454 ms Normal sinus rhythm Biatrial enlargement Nonspecific T wave abnormality Abnormal ECG When compared with ECG of 07-JAN-2024 19:24, QT has shortened Referred By: Pedro Bennett Electronically Signed By:CE YOO MD
[2024-01-08] MEDS: methADONE HCl 20 MG/2 ML ORAL.CONC 205 MG PO (09:43)
[2024-01-08] MEDS: LORazepam 0.5 MG TABLET PO (11:21)
--- NOTE | 2024-01-08 11:26 | PM.DS ---
DS: Providers Provider Date of Service: 01/08/24 Date of admission: 01/07/24 21:31 Primary care physician: None Physician Consults: 01/07/24 20:36 Addiction Medicine Stat Consulting Provider: Addiction Covering Reason for consultation: qtc 606 on methadone 205mg daily Has provider been notified: No 01/07/24 23:13 Consult to Psychiatry Routine Consulting Provider: Psych Covering Reason for consultation: On Seroquel in a patient with prolonged QTC. Med optimize DS: Diagnosis Discharge Diagnosis (1) Intractable cyclical vomiting with nausea: Status: Acute (2) Opiate withdrawal: Status: Acute DS: Summary Hospital Course Hospital Course: from initial hpi: 33-year-old female with pertinent history of IV polysubstance use disorder, PTSD who presents to the emergency department for evaluation of nausea and vomiting. Patient states she is here as she tried to self detox at home. Patient has been having multiple episodes of nausea and vomiting. No blood in vomitus. Admits anxiety but denies abdominal discomfort. No fever, chills. She last used IV heroin 1-2 days prior to presentation. States she lost took methadone 2 days ago. Is compliant with Seroquel and p.r.n. clonidine. No chest discomfort, palpitations, shortness of breath, changes in urinary or bowel habits. In the emergency department, patient was given p.o. methadone and IV lorazepam. She continued to have multiple episodes of nausea and vomiting and was unable to tolerate p.o.. hospital course: Patient was admitted for intractable nausea and vomiting due to opiate withdrawal versus cyclic vomiting syndrome. She was given Ativan and methadone and symptoms resolved. She reports being able to tolerate solid food. Was seen by addiction team who recommended continuing methadone. Noted to have prolonged QT. This resolved prior to discharge even on current dose of methadone. For PTSD Seroquel will continue to be held due to prolonged QT. She should follow up with Psychiatry as outpatient. Time Attestation Discharge Coordination Time (in mins): 35 Quality: Safe Use of Opioids Does Pt have an Active Cancer Diagnosis on the Problem List?: No Quality: Stroke Does the patient have a stroke diagnosis?: No Physical Exam Vital Signs: Vital Signs: Last Vital Signs Temp 97.9 F 01/08/24 06:00 Pulse 92 01/08/24 06:00 Resp 16 01/08/24 06:00 BP 136/84 01/08/24 06:00 Pulse Ox 97 01/08/24 06:00 O2 Del Method Room Air 01/08/24 06:00 BMI result Body Mass Index 25.5 General: AO X 3, no acute distress Resp: CTA bilateral, no accessory muscles used CVS: S1,S2,RRR GI: soft, non tender, non distended Neuro: motor grossly intact, alert Psych: appropriate affect, appropriate insight DS: Data Data Completed and Pending Labs on day of discharge: Laboratory Results - last 24 hr 01/07/24 16:54 WBC 10.3 RBC 5.39 Hgb 14.9 Hct 45.7 MCV 84.8 MCH 27.6 MCHC 32.6 RDW 12.9 Plt Count 248 D MPV 9.3 L Immature Gran % (Auto) 0.3 Neut % (Auto) 88.5 H Lymph % (Auto) 9.7 L [place] % (Auto) 1.3 L Eos % (Auto) 0.0 Baso % (Auto) 0.2 Lymph # (Auto) 1.0 L [place] # (Auto) 0.1 Eos # (Auto) 0.0 Baso # (Auto) 0.0 Abs Immat Gran (auto) 0.03 Absolute Neuts (auto) 9.1 H Absolute Nucleated RBC 0.000 Nucleated RBC % (auto) 0.0 Sodium 140 Potassium 3.6 Chloride 107 Carbon Dioxide 20 L Anion Gap 17 BUN 14 Creatinine 0.69 Estim Creat Clear Calc 123.0 Estimated GFR > 60 Random Glucose 130 H Calcium 9.9 D Magnesium 2.2 Total Bilirubin 1.0 AST 115 H ALT 134 H Alkaline Phosphatase 63 Total Protein 9.1 H Albumin 4.7 Lipase 9 TSH 0.62 Urine Color Dark Yellow Urine Appearance Cloudy Urine pH >= 9.0 Ur Specific [place] >= 1.030 H Urine Protein 100 (2+) H Urine Glucose (UA) Negative Urine Ketones 80 Urine Blood Negative Urine Nitrite Negative Ur Leukocyte Esterase Trace H Urine RBC 0-2 Urine WBC 0-5 Ur Squamous Epith Cells 6-10 Urine Bacteria Trace Hyaline Casts 0-2 Urine Test NEGATIVE Salicylates < 5.0 L Urine Opiates Screen POSITIVE H Urine Fentanyl Screen POSITIVE H Ur Barbiturates Screen Not Detected Ur Phencyclidine Scrn Not Detected Ur Amphetamines Screen Not Detected U Benzodiazepines Scrn Not Detected Urine Cocaine Screen POSITIVE H U Marijuana (THC) Screen POSITIVE H Ethyl Alcohol < 10 Discharge Plan Discharge Anticipated Discharge Date/Time: 01/08/24 11:24 Patient Disposition: Home, Self-Care Discharge Diagnosis: nasuea Referrals: Physician,None [Primary Care Provider] - 1 Week Discharge Medications: Continued methadone 175 mg PO DAILY Rx Instructions: confirmed at methadone clinic [address] [place] [address] quetiapine 400 mg Tablet 400 mg PO BEDTIME 30 Days Qty: 30 0RF clonidine HCl 0.2 mg tablet 0.2 mg PO QID PRN (Reason: anxiety) 30 Days Qty: 120 0RF Discharge Orders: Discharge Order (Routine); Ordered 01/08/24 Ordered By: Myron Hendricks Diet: Advance to usual diet Activity on Discharge: As tolerated Stand Alone Forms: Patient Portal Discharge page Print Language: Czech Care Plan Goals: recovery Health Concerns: n/v, hcv, qt prolongation Plan of Treatment: follow up with pcp for treatement of hcv, diet as tolerating Assessment: see above Patient Instructions: Opioid Withdrawal (ED)
--- NOTE | 2024-01-08 11:41 | PC.NURSE ---
pt verbalized tolerance of PO intake, improvement in nausea, medicated per MAR. pt requesting discharge and bus passes. admitting provider notified.
[2024-01-08 11:43] VITALS: BP 123/69; PULSE 93; RESP 16; TEMP 37.2; O2SAT 96
== END 2024-01-08 11:51 | disposition home or self-care (01) | DRG 773 ==
LOC: HO.ED 19:47 → HO.EDOVER 21:34
PROVIDERS: Internal Medicine; Physician Assistant Medical; Admitting Provider Student in an Organized Health Care Education/Training Program; Emergency Provider Emergency Medicine; Visit Provider Internal Medicine
DX: F11.23 Opioid dependence with withdrawal (principal); F17.210 Nicotine dependence, cigarettes, uncomplicated; Z71.6 Tobacco abuse counseling; F43.12 Post-traumatic stress disorder, chronic; F19.10 Other psychoactive substance abuse, uncomplicated; R94.31 Abnormal electrocardiogram [ECG] [EKG]; T40.3X6A Underdosing of methadone, initial encounter
CPT/HCPCS: 36415; 80053; 80179; 80307; 81001; 81025; 83690; 83735; 84443; 85025; 93005; 99285; J1200; J1650; J2060; J2405; J2765; J3475; J3480

== ENCOUNTER → 2024-01-07 19:11 | Outpatient (BNV) | payer OTHER, SELFPAY | PROVIDERS: Admitting Provider Student in an Organized Health Care Education/Training Program; Emergency Provider Emergency Medicine; Visit Provider Internal Medicine Cardiovascular Disease | DX: I45.81 Long QT syndrome (principal) | CPT/HCPCS: 93010 ==

== ENCOUNTER 2024-01-07 21:31 | Outpatient (BNV) | payer OTHER, SELFPAY | END 2024-01-08 09:00 | PROVIDERS: Admitting Provider Student in an Organized Health Care Education/Training Program; Emergency Provider Emergency Medicine; Visit Provider Internal Medicine Cardiovascular Disease | DX: I45.81 Long QT syndrome (principal); I51.7 Cardiomegaly | CPT/HCPCS: 93010 ==

== ENCOUNTER → 2024-01-07 21:31 | Outpatient (BNV) | payer OTHER, SELFPAY | PROVIDERS: Admitting Provider Student in an Organized Health Care Education/Training Program; Emergency Provider Emergency Medicine; Visit Provider Student in an Organized Health Care Education/Training Program | DX: R11.15 Cyclical vomiting syndrome unrelated to migraine (principal); F11.93 Opioid use, unspecified with withdrawal | CPT/HCPCS: 99223; 99239 ==

== ENCOUNTER 2024-01-29 23:53 | Emergency (ER) | payer OTHER, SELFPAY ==
[2024-01-30] VITALS (8 sets, daily range): BP systolic 85–108; BP diastolic 35–69; PULSE 46–59; RESP 16–20; TEMP 35.6–36.7; O2SAT 96–99; BMI 25.7
--- NOTE | 2024-01-30 00:29 | ECG_ITS ---
Test Reason : SHORTNESS OF BREATH Blood Pressure : / mmHG Vent. Rate : 054 BPM Atrial Rate : 054 BPM P-R Int : 176 ms QRS Dur : 086 ms QT Int : 516 ms P-R-T Axes : 077 065 064 degrees QTc Int : 489 ms Sinus bradycardia Minimal voltage criteria for LVH, may be normal variant ( Sokolow-Sommer ) Prolonged QT Abnormal ECG When compared with ECG of 08-JAN-2024 00:25, Non-specific change in ST segment in Anterior leads Nonspecific T wave abnormality, improved in Anterolateral leads Referred By: Generic ED Physician Electronically Signed By:HANSEL SARAVIA
[2024-01-30 00:59] LABS: MANUAL DIFF FLAG NO
[2024-01-30 01:01] LABS: Basophils Percent Auto 0.4 % (0-2); Eosinophils Absolute Auto 0.1 X10*3/uL (0.0-0.4); Eosinophils Percent Auto 1.3 % (0-4); Hematocrit 37.6 % (37.0-47.0); Hemoglobin 12.3 g/dl (12.0-16.0); Imm Gran Abs Auto 0.02 X10*3/uL (0.00-0.03); Imm Gran Pct Auto 0.2 % (0.0-0.4); Lymphocytes Absolute Auto 4.3 X10*3/uL (1.2-4.9); Lymphocytes Percent Auto 47.8 % (20-40); Mean Corpuscular HGB Conc 32.7 g/dl (31.0-35.0); Mean Corpuscular Hemoglobin 28.5 pg (27.0-33.0); Mean Platelet Volume 9.4 fL (9.4-12.3); Monocytes Absolute Auto 0.5 X10*3/uL (0.1-1.2); Neutrophils Absolute Auto 4.1 x10*3/uL (2.0-8.3); Neutrophils Percent Auto 45.3 % (45-73); Platelet Count 212 X10*3/uL (160-400); Red Blood Count 4.32 X10*6/uL (4.20-5.50); Red Cell Distribution Width 13.1 % (11.0-16.0)
[2024-01-30 01:22] LABS: Alanine Aminotransferase 61 U/L (0-31); Albumin Level 4.1 g/dL (3.5-5.0); Alkaline Phosphatase 49 U/L (39-117); Anion Gap 12 (12-20); Aspartate Amino Transferase 49 U/L (5-31); Bilirubin Total 0.8 mg/dL (0.0-1.0); Blood Urea Nitrogen 17 mg/dL (9-16); Calcium 9.1 mg/dL (8.4-10.2); Carbon Dioxide 25 mmol/L (22-29); Chloride 104 mmol/L (96-108); Creatinine Clr Calc Pharmacy 111.7; Estimated Glomerular Filt Rate > 60; Glucose Random 86 mg/dL (60-115); Potassium 3.9 mmol/L (3.3-5.1); Sodium 137 mmol/L (135-145); Total Protein 7.4 g/dL (6.5-8.0)
[2024-01-30 01:35] LABS: HCG Quantitative < 2 mIU/mL; Troponin-I High Sensitivity < 2.7 ng/L (<3.5-17.0)
[2024-01-30 01:44] LABS: Appearance Urine Clear; Color Urine Dark Yellow; Glucose Urine UA Negative (Negative); Leukocyte Esterase Urine Trace (Negative); Nitrite Urine Negative (Negative); PH 5.5 (5.0-9.0); Specific Gravity - Urine >= 1.030 (1.005-1.025); UMIC TRIGGER UACC YES; Urine Blood Negative (Negative); Urine Ketones Negative (Negative); Urine Protein Trace mg/dL (Neg-Trace)
[2024-01-30 01:49] LABS: Bacteria Urine Trace (None Seen); Hyaline Casts Urine 0-2 /LPF (0-2); RBC Urine 0-2 /HPF (0-2); UACC Culture Trigger YES
[2024-01-30 01:55] LABS: Amphetamine Screen Urine Not Detected (Not Detect); Barbiturates, Urine Not Detected (Not Detect); Benzodiazepines Screen Urine Not Detected (Not Detect); Buprenorphine Scr Not Detected (Not Detect); Cannabinoid Screen Urine POSITIVE (Not Detect); Cocaine Screen Urine POSITIVE (Not Detect); Fentanyl, urine POSITIVE (Not Detect); Methadone Screen, Urine Positive (Not Detect); Opiate Screen Urine POSITIVE (Not Detect); Oxycodone Screen Urine Not Detected (Not Detect); Phencyclidine Screen Urine Not Detected (Not Detect)
--- NOTE | 2024-01-30 07:02 | ED.ARRPALP ---
HPI - Arrhythmia/Palpitations General Chief Complaint: Arrhythmia/Palpitations Stated Complaint: elevated heart rate after fall Time Seen by Provider: 01/30/24 06:55 Source: patient and old records reviewed Mode of arrival: ambulatory Limitations: no limitations History of Present Illness HPI narrative: 33 yo female with PMH of PTSD, opiate use disorder on methadone, prolonged qTC, cocaine abuse, admitted in past for intractable n/v due to opiate withdrawal who presents with c/o fell down stairs yesterday after tripping on slippers. She notes no headstrike or LOC no injury. She notes she has been anxious since then. She feels since then her heart is racing. Denies drug abuse other than smoking THC but then told she was positive for cocaine and states this isn't her first rodea. Denies CP/SOB, injury, dizziness. She tells me she is hungry. She states she always gets admitted for this - I only see one for intractable n/v due to withdrawal. MD complaint: heart racing and palpitations Onset (ago): day(s) (1) Duration: intermittent Severity: mild Context: occurred during rest and occurred during exertion Associated symptoms: anxiety Related Data Home Medications ?Medication ?Instructions ?Recorded ?Confirmed methadone 175 mg PO DAILY 07/24/23 07/24/23 Previous Rx's ?Medication ?Instructions ?Recorded clonidine HCl 0.2 mg tablet 0.2 mg PO QID PRN anxiety 30 days 07/29/23 #120 tabs Allergies Allergy/AdvReac Type Severity Reaction Status Date / Time No Known Allergies Allergy Verified 01/30/24 00:25 [No Known Allergies*] Review of Systems Review of Systems: Constitutional : No Fever, No Chills, No Fatigue ENT/Mouth : No sore throat, No Rhinorrhea Eyes: No Eye Pain, No Swelling, No Redness Cardiovascular : No Chest Pain, No SOB, No Dyspnea on Exertion, pos palpitations Respiratory : No Cough, No Sputum Gastrointestinal : No Nausea, No Vomiting, No Diarrhea, No abdominal Pain Genitourinary : No Dysuria, No Urinary Frequency, No Hematuria, Musculoskeletal : No joint pain, No Myalgias, No Joint Swelling Skin : No Skin Lesions, No rash Neuro : No Weakness, No Numbness, No Dizziness, no Headache Psych : pos Anxiety/Panic, No Depression Heme/Lymph: No Bruising, No Bleeding,No Lymphadenopathy Endocrine : No Polyuria, No Polydipsia All other systems reviewed and are negative [facility] Past Medical History Attestation statement: The following information was validated with the patient. Source: old records reviewed Medical History Routine medical exam Polysubstance abuse Opioid dependence Social History Social History Household Members: None Household Members Other:: long-term room Housing: Apartment Do you presently have visiting nurse or other home services: No Patient Tobacco Use Status: Current everyday Tobacco user Tobacco use type: Cigar Cigarette Packs Per Day: 0.5 Cigarettes Per Day: 10.0 Years Smoked: ''a few years'' Smoked in Last 30 Days: Yes e-Cigarette/Vaping Use: Never Used Use of substances other than those prescribed or required for medical reasons: Yes Substance Use Type: Marijuana Substance Use Frequency: Chronic Longstanding Advance Directives: Yes Advance Directives on File: Yes Advance Directives Date on File: 01/08/24 Do you have a plan to hurt others: No Plan Patient : No service: No Sexual orientation: Straight/Heterosexual Physical Exam Vital Signs: Vital Signs: Last Vital Signs Temp 97.8 F 01/30/24 05:44 Pulse 59 01/30/24 07:47 Resp 20 01/30/24 05:44 BP 94/69 01/30/24 07:47 Pulse Ox 98 01/30/24 05:44 O2 Del Method Room Air 01/30/24 05:44 BMI result Body Mass Index 25.7 Appearance: Alert. Oriented X3. No acute distress. Eyes: Pupils equal, round and reactive to light. ENT: Pharynx normal. atraumatic Neck: Normal inspection. Neck supple. CVS: Normal heart rate and rhythm. Pulses normal. Respiratory: No respiratory distress. Breath sounds normal. Abdomen: Soft and nontender. Skin: Skin warm and dry. Normal skin color. Normal skin turgor. Extremities: No lower extremity edema. No calf ttp Neuro: Oriented X 3. No motor deficit. No sensory deficit. Course Course Course Narrative: I SUSPECT HER LOW BP OVERNIGHT WAS DUE TO PATIENT LAYING ON HER SIDE - I WENT INTO THE ROOM AND SHE WAS ON HER SIDE AND BP WAS IN THE 80S SHE LAID ON HER BACK AND BP WAS UP TO 110. I SUSPECT ERROR AND INNACURATE READINGS NOT HYPOTENSION Medical Decision Making Medical Decision Making [facility] Narrative: 33 yo female with PMH of PTSD, palpitations, drug abuse, prolonged qtc - here with c/o palpitations and heart racing but denies real symptoms not dizzy, ortho VS not impressive not dizzy when standing she is a difficulty stick and I do not think she is dehydrated enough to get repeated IV sticks. She has no anemia, she is able to eat and drink. She also has no trauma from the fall. At this time qtc at baseline. She is positive for cocaine which could be causing her symptoms but she states that isn't possible. At this time her BPs are in error as she was laying on her side I witnessed this. Differential Diagnosis Differential Diagnoses: The differential diagnosis associated with the presentation includes anemia, dehydration, drug abuse Admission/Observation Consideration of admission/observation: Escalation of care including admission/observation considered eating, drinking, qtc better than baseline no trauma from fall 24 hours ago GCS 15 no dizziness can be managed as outpatient Lab Data [facility] Lab Attestation statement: I reviewed the patient's lab results. 01/30/24 00:52 01/30/24 00:52 Labs: Lab Results 01/30/24 01/30/24 Range/Units 00:52 01:36 WBC 9.0 (4.8-10.8) X10*3/uL RBC 4.32 (4.20-5.50) X10*6/uL Hgb 12.3 (12.0-16.0) g/dl Hct 37.6 (37.0-47.0) % MCV 87.0 (80.0-98.0) fL MCH 28.5 (27.0-33.0) pg MCHC 32.7 (31.0-35.0) g/dl RDW 13.1 (11.0-16.0) % Plt Count 212 (160-400) X10*3/uL MPV 9.4 (9.4-12.3) fL Immature Gran % (Auto) 0.2 (0.0-0.4) % Neut % (Auto) 45.3 (45-73) % Lymph % (Auto) 47.8 H (20-40) % [place] % (Auto) 5.0 (2-11) % Eos % (Auto) 1.3 (0-4) % Baso % (Auto) 0.4 (0-2) % Lymph # (Auto) 4.3 (1.2-4.9) X10*3/uL [place] # (Auto) 0.5 (0.1-1.2) X10*3/uL Eos # (Auto) 0.1 (0.0-0.4) X10*3/uL Baso # (Auto) 0.0 (0.0-0.2) X10*3/uL Abs Immat Gran (auto) 0.02 (0.00-0.03) X10*3/uL Absolute Neuts (auto) 4.1 (2.0-8.3) x10*3/uL Absolute Nucleated RBC 0.000 (0.0-0.012) X10*3/uL Nucleated RBC % (auto) 0.0 (0.0-0.2) /100WBC Sodium 137 (135-145) mmol/L Potassium 3.9 (3.3-5.1) mmol/L Chloride 104 (96-108) mmol/L Carbon Dioxide 25 (22-29) mmol/L Anion Gap 12 (12-20) BUN 17 H (9-16) mg/dL Creatinine 0.76 (0.5-1.4) mg/dL Estim Creat Clear Calc 111.7 Estimated GFR > 60 Random Glucose 86 (60-115) mg/dL Calcium 9.1 D (8.4-10.2) mg/dL Total Bilirubin 0.8 (0.0-1.0) mg/dL AST 49 H (5-31) U/L ALT 61 H (0-31) U/L Alkaline Phosphatase 49 (39-117) U/L Troponin I High Sens < 2.7 (<3.5-17.0) ng/L Total Protein 7.4 (6.5-8.0) g/dL Albumin 4.1 (3.5-5.0) g/dL Beta HCG, Quant < 2 mIU/mL Urine Color Dark Yellow Urine Appearance Clear Urine pH 5.5 (5.0-9.0) Ur Specific [place] >= 1.030 H (1.005-1.025) Urine Protein Trace (Neg-Trace) mg/dL Urine Glucose (UA) Negative (Negative) mg/dL Urine Ketones Negative (Negative) mg/dL Urine Blood Negative (Negative) Urine Nitrite Negative (Negative) Ur Leukocyte Esterase Trace H (Negative) Urine RBC 0-2 (0-2) /HPF Urine WBC 6-10 H (0-5) /HPF Ur Squamous Epith Cells 3-5 (0-2) /HPF Urine Bacteria Trace (None Seen) Hyaline Casts 0-2 (0-2) /LPF Urine Opiates Screen POSITIVE H (Not Detect) Ur Buprenorphine Scrn Not Detected (Not Detect) ng/mL Ur Oxycodone Screen Not Detected (Not Detect) ng/mL Urine Methadone Screen Positive H (Not Detect) ng/mL Urine Fentanyl Screen POSITIVE H (Not Detect) Ur Barbiturates Screen Not Detected (Not Detect) Ur Phencyclidine Scrn Not Detected (Not Detect) Ur Amphetamines Screen Not Detected (Not Detect) U Benzodiazepines Scrn Not Detected (Not Detect) Urine Cocaine Screen POSITIVE H (Not Detect) U Marijuana (THC) Screen POSITIVE H (Not Detect) Independent Interpretation I performed an independent interpretation of an: EKG Interpretation: Rate:54 Rhythm: sinus bradycardia Buck[place]: normal Normal P waves. Normal SHERRIE. Normal QRS complex. ST T wave : normal no EDDIE qTC: 489 prior studies: qtc at baseline The study has been interpreted contemporaneously by me. . External Record Review External record reviewed: Inpatient record Discharge Plan Discharge Clinical Impression: Anxiety, Palpitations Patient Disposition: Home, Self-Care Instructions: Anxiety (ED), Heart Palpitations (ED) Additional Instructions: your liver enzymes are improving, you are not anemic. your EKG marker for qtc is better than usual for you. your HR was in the 50s. continue your medications. follow up with your doctor eat and drink a lot of fluids today return for worsening symptoms, fainting, numbness, weakness, increased dizziness or any other concerns. Prescriptions: No Action methadone 175 mg PO DAILY Rx Instructions: confirmed at methadone clinic [facility] [address] clonidine HCl 0.2 mg tablet 0.2 mg PO QID PRN (Reason: anxiety) 30 Days Qty: 120 0RF Print Language: Yoruba
--- NOTE | 2024-01-30 07:23 | PC.NURSE ---
assumed care of pt at 0700. pt a&o x4, calm, and cooperative. t/w attempted to place IV and draw labs with no success. pt difficult stick due to hx of IV drug use. will ask provider to place ultrasound guided IV.
== END 2024-01-30 08:51 | disposition home or self-care (01) ==
PROVIDERS: Emergency Provider Emergency Medicine
DX: I49.9 Cardiac arrhythmia, unspecified (principal); F11.19 Opioid abuse with unspecified opioid-induced disorder; F14.19 Cocaine abuse with unspecified cocaine-induced disorder; R00.2 Palpitations; R11.2 Nausea with vomiting, unspecified; F17.210 Nicotine dependence, cigarettes, uncomplicated; F41.1 Generalized anxiety disorder; F43.0 Acute stress reaction; Z79.899 Other long term (current) drug therapy
CPT/HCPCS: 36415; 80053; 80307; 81001; 84484; 84702; 85025; 87086; 93005; 99283; 99285

== ENCOUNTER → 2024-01-30 00:29 | Outpatient (BNV) | payer OTHER, SELFPAY | PROVIDERS: Emergency Provider Emergency Medicine; Visit Provider Internal Medicine | DX: R00.1 Bradycardia, unspecified (principal); R94.31 Abnormal electrocardiogram [ECG] [EKG] | CPT/HCPCS: 93010 ==

== ENCOUNTER 2024-03-21 23:57 | Emergency (ER) | payer OTHER, SELFPAY ==
--- NOTE | 2024-03-22 | ECG_ITS ---
Test Reason : CHEST PAIN Blood Pressure : / mmHG Vent. Rate : 095 BPM Atrial Rate : 095 BPM P-R Int : 154 ms QRS Dur : 078 ms QT Int : 360 ms P-R-T Axes : 077 050 055 degrees QTc Int : 452 ms Normal sinus rhythm Right atrial enlargement Nonspecific ST abnormality Abnormal ECG When compared with ECG of 30-JAN-2024 00:40, Vent. rate has increased BY [address] no longer elevated in Inferior leads Referred By: Generic ED Physician Electronically Signed By:CE YOO MD
--- NOTE | 2024-03-22 00:10 | MHC.EDTECH ---
Patient refused to have EKG at the moment. Patient stated that needed to use the bathroom to get cleaned before EKG.
[2024-03-22 00:18] VITALS: BP 156/81; PULSE 97; RESP 18; TEMP 527.9; TEMP 982.2; O2SAT 98; BMI 27.6
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
[2024-03-22 01:49] LABS: UPreg QC Valid YES; Urine Pregnancy NEGATIVE (NEGATIVE)
[2024-03-22] MEDS: LORazepam 1 MG TABLET 2 MG PO (02:09)
[2024-03-22] MEDS: Acetaminophen 325 MG TABLET 975 MG PO (02:09)
[2024-03-22] MEDS: Ibuprofen 600 MG TABLET PO ×2 (02:09→13:34)
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
[2024-03-22 04:02] LABS: MANUAL DIFF FLAG NO
[2024-03-22 04:03] LABS: Basophils Percent Auto 0.4 % (0-2); Eosinophils Percent Auto 0.1 % (0-4); Hematocrit 36.8 % (37.0-47.0); Hemoglobin 12.1 g/dl (12.0-16.0); Imm Gran Abs Auto 0.02 X10*3/uL (0.00-0.03); Imm Gran Pct Auto 0.2 % (0.0-0.4); Lymphocytes Absolute Auto 2.6 X10*3/uL (1.2-4.9); Lymphocytes Percent Auto 27.7 % (20-40); Mean Corpuscular HGB Conc 32.9 g/dl (31.0-35.0); Mean Corpuscular Hemoglobin 28.1 pg (27.0-33.0); Mean Corpuscular Volume 85.6 fL (80.0-98.0); Monocytes Absolute Auto 0.4 X10*3/uL (0.1-1.2); Monocytes Percent Auto 4.3 % (2-11); Neutrophils Absolute Auto 6.2 x10*3/uL (2.0-8.3); Neutrophils Percent Auto 67.3 % (45-73); Platelet Count 198 X10*3/uL (160-400); White Blood Count 9.2 X10*3/uL (4.8-10.8)
[2024-03-22 04:17] LABS: Anion Gap 14 (12-20); Blood Urea Nitrogen 17 mg/dL (9-16); Calcium 9.5 mg/dL (8.4-10.2); Carbon Dioxide 25 mmol/L (22-29); Chloride 109 mmol/L (96-108); Creatinine Clr Calc Pharmacy 125.5; Estimated Glomerular Filt Rate > 60; Glucose Random 106 mg/dL (60-115); Sodium 144 mmol/L (135-145)
[2024-03-22 04:19] LABS: Acetaminophen LAB 11 mcg/mL (<30); Ethanol < 10 mg/dL; Salicylate < 5.0 mg/dL (15-30)
[2024-03-22 06:34] VITALS: BP 136/73; PULSE 81; RESP 17; TEMP 36.7; O2SAT 99
--- NOTE | 2024-03-22 07:15 | PC.NURSE ---
this RN resumed care of pt at 0645. a&ox4. vss and up to date. pt aware UA is needed in order to be seen by care team. pt requesting snacks - snacks provided. pt ate 100% of breakfast. partner bedside. pt in no apparent distress. no sob/wob noted. respirations even/unlabored. plan of care ongoing. call lee placed within reach.
--- NOTE | 2024-03-22 08:00 | PC.NURSE ---
urine obtained/sent to lab by tech. pt waiting to be seen by CARE team at this time. plan of care ongoing. call lee placed within reach.
[2024-03-22 08:13] LABS: Amphetamine Screen Urine Not Detected (Not Detect); Barbiturates, Urine Not Detected (Not Detect); Benzodiazepines Screen Urine Not Detected (Not Detect); Buprenorphine Scr Not Detected (Not Detect); Cannabinoid Screen Urine POSITIVE (Not Detect); Cocaine Screen Urine POSITIVE (Not Detect); Fentanyl, urine POSITIVE (Not Detect); Methadone Screen, Urine Positive (Not Detect); Opiate Screen Urine POSITIVE (Not Detect); Oxycodone Screen Urine Not Detected (Not Detect); Phencyclidine Screen Urine Not Detected (Not Detect)
[2024-03-22 10:24] VITALS: BP 114/47; PULSE 82; TEMP 37.1; O2SAT 99
--- NOTE | 2024-03-22 13:05 | PC.NURSE ---
pt still pending care team eval at this time. resting in room w/ lights dimmed in no apparent distress. respirations remain even/unlabored. call lee placed within reach.
[2024-03-22 13:33] VITALS: BP 133/64; PULSE 77; RESP 16; TEMP 36.7; O2SAT 100
[2024-03-22] MEDS: LORazepam 1 MG TABLET PO (13:34)
[2024-03-22] MEDS: Acetaminophen 325 MG TABLET PO (13:34)
--- NOTE | 2024-03-22 13:38 | PC.NURSE ---
pt verbalizing that she no longer wants a care team consult. provider notified/aware.
[2024-03-22 14:45] VITALS: BP 133/64; PULSE 77; RESP 16; TEMP 36.7; O2SAT 100
== END 2024-03-22 14:46 | disposition home or self-care (01) ==
PROVIDERS: Emergency Provider Emergency Medicine
DX: F43.20 Adjustment disorder, unspecified (principal); R07.9 Chest pain, unspecified; F41.9 Anxiety disorder, unspecified; Z87.828 Personal history of other (healed) physical injury and trauma
CPT/HCPCS: 36415; 80048; 80143; 80179; 80307; 81025; 85025; 93005; 99284; 99285

== ENCOUNTER → 2024-03-22 00:11 | Outpatient (BNV) | payer OTHER, SELFPAY | PROVIDERS: Emergency Provider Emergency Medicine; Visit Provider Internal Medicine Cardiovascular Disease | DX: R07.9 Chest pain, unspecified (principal) | CPT/HCPCS: 93010 ==

== ENCOUNTER 2024-03-28 02:07 | Emergency (ER) | payer OTHER, SELFPAY ==
[2024-03-28 02:15] VITALS: BP 147/76; PULSE 77; RESP 17; TEMP 36.9; O2SAT 98; BMI 27.8
[2024-03-28 02:36] LABS: Appearance Urine Clear; Color Urine Yellow; Glucose Urine UA Negative (Negative); Leukocyte Esterase Urine Trace (Negative); Nitrite Urine Negative (Negative); Specific Gravity - Urine >= 1.030 (1.005-1.025); UMIC TRIGGER UACC YES; Urine Blood Negative (Negative); Urine Ketones Negative (Negative); Urine Protein Trace mg/dL (Neg-Trace)
--- NOTE | 2024-03-28 02:36 | ED.FEMALEGU ---
HPI - Female Genitourinary General Chief complaint: Vaginal Bleeding Stated complaint: pain and bleeding after sex Time Seen by Provider: 03/28/24 02:26 Source: patient Mode of arrival: ambulatory Limitations: no limitations History of Present Illness ED Provider: manisha YOUNGBLOOD Narrative: Patient complaining of dysuria frequency and lower abdominal pain after having sexual intercourse about 2 days ago no fever no chills no nausea no vomiting no diarrhea no vaginal discharge Related Data Home Medications ?Medication ?Instructions ?Recorded ?Confirmed methadone 175 mg PO DAILY 07/24/23 07/24/23 Previous Rx's ?Medication ?Instructions ?Recorded clonidine HCl 0.2 mg tablet 0.2 mg PO QID PRN anxiety 30 days 07/29/23 #120 tabs ibuprofen 600 mg tablet 600 mg PO Q6H PRN fever or pain 03/28/24 #30 tabs Allergies Allergy/AdvReac Type Severity Reaction Status Date / Time No Known Allergies Allergy Verified 03/28/24 02:19 [No Known Allergies*] Review of Systems Review of Systems: Yes all other systems are reviewed and are negative PMFSH Past Medical History Medical History Routine medical exam Polysubstance abuse Opioid dependence Social History Social History Household Members: None Household Members Other:: [facility] room Housing: Apartment Do you presently have visiting nurse or other home services: No Patient Tobacco Use Status: Current everyday Tobacco user Tobacco use type: Cigar Cigarette Packs Per Day: 0.5 Cigarettes Per Day: 10.0 Years Smoked: ''a few years'' Smoked in Last 30 Days: No e-Cigarette/Vaping Use: Never Used Substance Use Type: Marijuana and Other Advance Directives: Yes Advance Directives on File: Yes Advance Directives Date on File: 01/08/24 Do you have a plan to hurt others: No Plan Patient : No service: No Sexual orientation: Straight/Heterosexual Physical Exam Vital Signs: Vital Signs: Last Vital Signs Temp 98.4 F 03/28/24 03:41 Pulse 77 03/28/24 03:41 Resp 17 03/28/24 03:41 BP 147/76 H 03/28/24 03:41 Pulse Ox 98 03/28/24 03:41 O2 Del Method Room Air 03/28/24 03:41 BMI result Body Mass Index 27.8 Appearance: Alert. Oriented X3. No acute distress. ENT: Pharynx normal. Oral Mucosa moist Neck: Normal inspection. Neck supple. CVS: Normal heart rate and rhythm. Pulses normal. Respiratory: No respiratory distress. Equal air entry bilateral, no wheezing/rales/rhonchi Abdomen: Soft and nontender. Bowel sounds are present, no mass palpable, no CVA tenderness Skin: Skin warm and dry. Normal skin color. Normal skin turgor. Extremities: No lower extremity edema. No calf tenderness Neuro: Oriented X 3. No motor deficit. Medications Administered Discontinued Medications Generic Name Dose Route Start Last Admin Trade Name Freq PRN Reason Stop Dose Admin Ibuprofen 600 mg 03/28/24 03:31 03/28/24 03:40 Ibuprofen 600 Mg Tablet PO 03/28/24 03:32 600 mg ONCE ONE Administration Medical Decision Making Lab Data Labs: Lab Results 03/28/24 Range/Units 02:31 Urine Color Yellow Urine Appearance Clear Urine pH 6.0 (5.0-9.0) Ur Specific [place] >= 1.030 H (1.005-1.025) Urine Protein Trace (Neg-Trace) mg/dL Urine Glucose (UA) Negative (Negative) mg/dL Urine Ketones Negative (Negative) mg/dL Urine Blood Negative (Negative) Urine Nitrite Negative (Negative) Ur Leukocyte Esterase Trace H (Negative) Urine RBC 0-2 (0-2) /HPF Urine WBC 11-20 H (0-5) /HPF Ur Squamous Epith Cells 6-10 (0-2) /HPF Urine Bacteria None Seen (None Seen) Hyaline Casts 0-2 (0-2) /LPF Discharge Plan Discharge Clinical Impression: Pelvic cramping Patient Disposition: Home, Self-Care Instructions: Pelvic Pain in Women (ED) Additional Instructions: Likely you have menstrual cramps Take ibuprofen for pain Prescriptions: New ibuprofen 600 mg tablet 600 mg PO Q6H PRN (Reason: fever or pain) Qty: 30 0RF No Action methadone 175 mg PO DAILY Rx Instructions: confirmed at methadone clinic [address] [place] [address] clonidine HCl 0.2 mg tablet 0.2 mg PO QID PRN (Reason: anxiety) 30 Days Qty: 120 0RF Interventions: ED Discharge Assessment Last Done: 03/28/24 03:41 Discharge Date/Time: 03/28/24 03:42 Print Language: Algerian
[2024-03-28 02:41] LABS: Bacteria Urine None Seen (None Seen); Hyaline Casts Urine 0-2 /LPF (0-2); RBC Urine 0-2 /HPF (0-2); UACC Culture Trigger YES
[2024-03-28] MEDS: Ibuprofen 600 MG TABLET PO (03:40)
[2024-03-28 03:41] VITALS: BP 147/76; PULSE 77; RESP 17; TEMP 36.9; O2SAT 98
== END 2024-03-28 03:42 | disposition home or self-care (01) ==
PROVIDERS: Emergency Provider Internal Medicine
DX: R10.2 Pelvic and perineal pain (principal); N93.9 Abnormal uterine and vaginal bleeding, unspecified; F17.200 Nicotine dependence, unspecified, uncomplicated
CPT/HCPCS: 81001; 87086; 99283; 99284

== ENCOUNTER 2024-04-04 02:03 | Emergency (ER) | payer OTHER, SELFPAY ==
[2024-04-04 02:16] VITALS: PULSE 96; RESP 20; TEMP 36.7; O2SAT 98; BMI 27.4
--- NOTE | 2024-04-04 02:25 | PC.NURSE ---
unable to obtain BP as pt cannot sit still during time of triage
--- NOTE | 2024-04-04 03:31 | MHC.EDTECH ---
Pt refused blood work. Hansel HAMILTON aware.
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
[2024-04-04 06:33] VITALS: BP 96/64; PULSE 51; RESP 16; TEMP 36.6; O2SAT 99
[2024-04-04 06:57] VITALS: BP 96/64; PULSE 51; RESP 16; TEMP 36.6; O2SAT 99
== END 2024-04-04 06:58 | disposition home or self-care (01) ==
PROVIDERS: Emergency Provider Internal Medicine
DX: F19.10 Other psychoactive substance abuse, uncomplicated (principal); F17.210 Nicotine dependence, cigarettes, uncomplicated; F11.20 Opioid dependence, uncomplicated; F43.10 Post-traumatic stress disorder, unspecified; F14.20 Cocaine dependence, uncomplicated
CPT/HCPCS: 99283

== ENCOUNTER 2025-08-02 13:26 | Emergency (ER) | payer MEDICAID, SELFPAY ==
--- NOTE | 2025-08-02 | ECG_ITS ---
Test Reason : MED CLEARANCE Blood Pressure : */* mmHG Vent. Rate : 52 BPM Atrial Rate : 52 BPM P-R Int : 160 ms QRS Dur : 84 ms QT Int : 484 ms P-R-T Axes : 79 72 80 degrees QTcB Int : 450 ms Sinus bradycardia Otherwise normal ECG When compared with ECG of 22-Mar-2024 00:11, Vent. rate has decreased by 43 bpm Referred By: Bassam Reyes Electronically Signed By: Khoi Stern
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
[2025-08-02 13:33] VITALS: BP 115/45; BP 116/86; PULSE 62; PULSE 64; RESP 16; TEMP 36.4; O2SAT 97; O2SAT 98; BMI 29.9
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
[2025-08-02 13:51] VITALS: BP 115/45; PULSE 62; RESP 16; TEMP 36.4; O2SAT 97
[2025-08-02 14:10] LABS: Hematocrit 36.1 % (37.0-47.0); Hemoglobin 11.8 g/dl (12.0-16.0); Imm Gran Abs Auto 0.03 X10*3/uL (0.00-0.03); Imm Gran Pct Auto 0.4 % (0.0-0.4); Lymphocytes Absolute Auto 2.7 X10*3/uL (1.2-4.9); Mean Corpuscular HGB Conc 32.7 g/dl (31.0-35.0); Mean Corpuscular Hemoglobin 27.6 pg (27.0-33.0); Mean Corpuscular Volume 84.3 fL (80.0-98.0); NRBC Abs Auto 0.000 X10*3/uL (0.0-0.012); NRBC Pct Auto 0.0 /100WBC (0.0-0.2); Platelet Count 205 X10*3/uL (160-400); Red Blood Count 4.28 X10*6/uL (4.20-5.50); White Blood Count 7.6 X10*3/uL (4.8-10.8)
[2025-08-02 14:11] LABS: MANUAL DIFF FLAG NO
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
[2025-08-02 14:34] LABS: Alanine Aminotransferase 28 U/L (0-31); Albumin Level 3.9 g/dL (3.5-5.0); Alkaline Phosphatase 48 U/L (39-117); Anion Gap 9 (12-20); Aspartate Amino Transferase 25 U/L (5-31); Blood Urea Nitrogen 12 mg/dL (9-16); Calcium 8.9 mg/dL (8.4-10.2); Carbon Dioxide 26 mmol/L (22-29); Chloride 108 mmol/L (96-108); Creatinine Clr Calc Pharmacy 166.5; Estimated Glomerular Filt Rate > 60; Potassium 3.4 mmol/L (3.3-5.1); Sodium 140 mmol/L (135-145); Total Protein 7.0 g/dL (6.5-8.0)
[2025-08-02 16:13] VITALS: BP 110/43; PULSE 57; RESP 14; O2SAT 95
[2025-08-02 16:30] LABS: Cannabinoid Screen Urine POSITIVE (Not Detect)
[2025-08-02 17:03] LABS: Appearance Urine Clear; Glucose Urine UA Negative (Negative); PH 6.0 (5.0-9.0); Specific Gravity - Urine 1.020 (1.005-1.025); UMIC TRIGGER UACC YES
[2025-08-02 17:05] LABS: UACC Culture Trigger YES
[2025-08-02 18:51] VITALS: BP 114/57; PULSE 54; RESP 16; TEMP 36.6; O2SAT 98
--- NOTE | 2025-08-02 20:11 | PC.NURSE ---
Nurse to nurse given to JOY Tello in ED BH Pod. Pt being changed into safe clothing at this time with ED staff.
--- NOTE | 2025-08-02 21:10 | PC.NURSE ---
Report previously received and patient escorted into the pod with staff and security. She is calm and cooperative, without distress noted. She has visible bruising and scabbed over areas noted to her face, denies the presence of pain/discomfort at this time. She was provided with food/beverage per request as she reports that she has not eaten all day. The pt calmly took her items back to her room where she is sitting on her bed in the dark eating. She denies any current SI/HI at this time. Aware of plan for inpatient level of care recommendation and has no questions/concerns that were identified.
--- NOTE | 2025-08-02 22:15 | PC.NURSE ---
RN received a call from admissions requesting an EKG and med rec be completed for this patient. RN to notify them via [facility] chat once complete
[2025-08-03 03:25] VITALS: BP 115/53; PULSE 50; RESP 16; TEMP 36.4; O2SAT 97
[2025-08-03 07:52] VITALS: BP 109/72; PULSE 87; RESP 16; TEMP 36.3; O2SAT 99
[2025-08-03] MEDS: methADONE HCl 20 MG/2 ML ORAL.CONC 185 MG PO (08:42)
--- NOTE | 2025-08-03 08:51 | HE.PHANOTE ---
RE: METHADONE DOSING Patient's total daily methadone dose is 235 mg (185 mg in the morning and 50 mg in the evening). Last methadone dose 185 mg given on 08/02/25 @0832 at [facility] [phone] with one take home dose of 50 mg per JOY Diaz. Per patient, she took the take home dose 50 mg on 08/02/25 @6pm.
[2025-08-03 14:21] VITALS: BP 97/52; PULSE 53; RESP 18; TEMP 36.8; O2SAT 97
[2025-08-03] MEDS: methADONE HCl 20 MG/2 ML ORAL.CONC 50 MG PO (20:28)
[2025-08-03 21:46] VITALS: BP 105/58; PULSE 59; RESP 14; TEMP 36.8; O2SAT 99
[2025-08-04 06:00] VITALS: BP 144/64; PULSE 60; RESP 18; O2SAT 97
--- NOTE | 2025-08-04 08:14 | MHC.CARE ---
Pt has been accepted to [facility] by Bryanna. The accepting provider is Dr. Ray and the ETA is 2pm. The address is [address] [place] [address]. CARE Team and pod RN Raven were notified of placement. No n2n is needed by accepting facility.
--- NOTE | 2025-08-04 08:30 | MHC.CARE ---
Pt accepted to [facility] for 2 PM.
[2025-08-04] MEDS: methADONE HCl 20 MG/2 ML ORAL.CONC 185 MG PO (08:47)
[2025-08-04 11:48] VITALS: BP 144/64; PULSE 60; RESP 18; TEMP 36.8
== END 2025-08-04 11:49 ==
PROVIDERS: Emergency Medicine; Emergency Provider Emergency Medicine
DX: O23.41 Unspecified infection of urinary tract in pregnancy, first trimester (principal); N39.0 Urinary tract infection, site not specified; O09.511 Supervision of elderly primigravida, first trimester; O99.331 Smoking (tobacco) complicating pregnancy, first trimester; O99.321 Drug use complicating pregnancy, first trimester; F11.20 Opioid dependence, uncomplicated
CPT/HCPCS: 36415; 76604; 76705; 76801; 80053; 80307; 81001; 81003; 84702; 85025; 87086; 87088; 87186; 93005; 93308; 99285; S9485

== ENCOUNTER → 2025-08-02 14:09 | Outpatient (BNV) | payer MEDICAID, SELFPAY | PROVIDERS: Emergency Provider Emergency Medicine; Visit Provider Radiology Diagnostic Radiology | DX: R10.31 Right lower quadrant pain (principal); Z3A.01 Less than 8 weeks gestation of pregnancy | CPT/HCPCS: 76817 ==

== ENCOUNTER → 2025-08-02 22:19 | Outpatient (BNV) | payer MEDICAID, SELFPAY | PROVIDERS: Emergency Provider Emergency Medicine; Visit Provider Internal Medicine Cardiovascular Disease | DX: R00.1 Bradycardia, unspecified (principal) | CPT/HCPCS: 93010 ==

== ENCOUNTER 2025-08-24 12:43 | Emergency (ER) | payer MEDICAID, SELFPAY ==
--- NOTE | 2025-08-24 | ECG_ITS ---
Test Reason : REPEAT QT EVAL Blood Pressure : */* mmHG Vent. Rate : 58 BPM Atrial Rate : 58 BPM P-R Int : 164 ms QRS Dur : 84 ms QT Int : 468 ms P-R-T Axes : 70 60 62 degrees QTcB Int : 459 ms Sinus bradycardia Possible Left atrial enlargement Minimal voltage criteria for LVH, may be normal variant ( Sokolow-Sommer ) Borderline ECG When compared with ECG of 24-Aug-2025 18:15, QT has shortened Referred By: Reanna Gilliam Electronically Signed By: Khoi Stern
--- NOTE | ~2025-08-24 | US_ITS ---
EXAMINATION: US FIRST TRIMESTER OB HISTORY: vaginal bleeding in early TECHNIQUE: Endovaginal scanning was performed. FINDINGS: There is a single intrauterine . No placental abnormality is identified. AUA = 11 weeks 2 days MERRILL(AUA) = 03/13/2026 GA(1st ultrasound) = 11 weeks 0 days MERRILL(1st ultrasound) = 03/15/2026 CRL: 4.29 cm Yolk Sac: seen FHR: 155 bpm Right ovary: The right ovary is not identified. Left ovary: The left ovary is not identified. Cul-de-sac: No free fluid US/US OB limited IMPRESSION: Single, live intrauterine of estimated gestational age 11 weeks, 2 days. No placental abnormality is identified. Electronically signed by: Karri Washington MD 08/24/2025 03:11 PM [facility]
[2025-08-24 12:51] VITALS: BMI 30.6
[2025-08-24 12:52] VITALS: BP 102/65; PULSE 65; RESP 16; TEMP 36.9; O2SAT 98
--- NOTE | 2025-08-24 12:52 | ED_ITS ---
HPI - General Adult General Chief complaint: Abdominal Pain Stated complaint: no methadone x2d 12 w spotting Time Seen by Provider: 08/24/25 12:52 Source: patient and EMS Mode of arrival: EMS Limitations: no limitations History of Present Illness ED Provider: Reanna Gilliam PA-C HPI narrative: Patient is a 34 year old assigned female at with a history of PTSD, cocaine use disorder, and opiate use disorder on methadone, and approximately 12 weeks , presenting to the emergency department today requesting her methadone dose and vaginal spotting. Patient states that she has been having rough sex and is now having some vaginal spotting. Patient states that she also has not taken her methadone dose today and would like that. Patient denies any other complaints at this time. Note: patient is in courtesy clerk custody. Related Data Home Medications ?Medication ?Instructions ?Recorded ?Confirmed methadone 10 mg/mL oral 235 mg PO DAILY 08/03/25 concentrate (Methadone Intensol) Previous Rx's ?Medication ?Instructions ?Recorded clonidine HCl 0.2 mg tablet 0.2 mg PO QID PRN anxiety 30 days 07/29/23 #120 tabs ibuprofen 600 mg tablet 600 mg PO Q6H PRN fever or p ain 03/28/24 #30 tabs vit no.95-ferrous 1 tab PO DAILY #90 tabs 12/22 fumarate 28 mg-folic acid 800 mcg tablet ( Multivitamins) vit no.95-ferrous 1 tab PO DAILY 90 days #90 tabs 08/02/25 fumarate 28 mg-folic acid 800 mcg tablet ( Multivitamins) cephalexin 500 mg capsule 500 mg PO Q6H 5 days #20 cap s 08/03/25 cefuroxime axetil 250 mg tablet 500 mg (2 x 250 mg) PO BID 7 days 08/24/25 #28 tabs Allergies Allergy/AdvReac Type Severity Reaction Status Date / Time No Known Allergies (No Known Allergy Verified 08/24/25 13:03 Allergies*) Review of Systems 2 Constitutional: Constitutional: Reports as per HPI Eyes: Eyes: Reports as per HPI ENT: Reports as per HPI Cardiovascular: Cardiovascular: Reports as per HPI Respiratory: Respiratory: Reports as per HPI Gastrointestinal: Gastrointestinal: Reports as per HPI Genitourinary: Genitourinary: Reports as per HPI Musculoskeletal: Musculoskeletal: Reports as per HPI Integumentary/Breasts: Skin/Breast: Reports as per HPI Neurologic: Reports as per HPI Psychiatric: Psychiatric: Reports as per HPI Endocrine: Endocrine: Reports as per HPI Hematologic/Lymphatic: Hematologic/Lymphatic: Reports as per HPI Allergic/Immunologic: Allergic/Immunologic: Reports as per HPI [facility] Past Medical History Attestation statement: The following information was validated with the patient. Source: old records reviewed and nursing notes reviewed Medical History Routine medical exam Polysubstance abuse Opioid dependence Social History Social History Household Members: None Household Members Other:: alf room Housing: Apartment Do you presently have visiting nurse or other home services: No Patient Tobacco Use Status: Current everyday Tobacco user Tobacco use type: Cigar Cigarette Packs Per Day: 0.5 Cigarettes Per Day: 10.0 Years Smoked: ''a few years'' e-Cigarette/Vaping Use: Never Used Substance Use Type: Marijuana and Other Advance Directives: Yes Advance Directives on File: Yes Advance Directives Date on File: 01/08/24 Do you have a plan to hurt others: No Plan Patient : Yes service: No Sexual orientation: Straight/Heterosexual Physical Exam ED Vital Signs: Vital Signs - 24 hr 08/24/25 12:52 08/24/25 17:09 08/24/25 19:31 Temperature 98.5 F 97.8 F 97.8 F Pulse Rate 65 66 66 Respiratory Rate 16 16 16 Blood Pressure 102/65 109/50 L 109/60 Pulse Oximetry 98 97 97 Oxygen Delivery Method Room Air Room Air Room Air BMI result Body Mass Index 30.6 Const General: cooperative, no acute distress, alert and awake Nutritional Appearance: well nourished Orientation/consciousness: patient oriented x3 HENMT Head: Yes normal to inspection and Yes atraumatic Ears: hearing grossly normal bilaterally and external ears normal General nose exam: Normal external nose present, no nasal discharge noted and no epistaxis Face and sinus: Yes normal facial exam, No abrasion and No laceration Mouth: Normal oral and palatal mucosa present, no drooling and no muffled voice Eyes General: appearance normal, both eyes and all related structures Periorbital: periorbital findings normal Eyelids: Yes eyelids normal Conjunctivae: conjunctivae normal Pupils: Equal, round and reactive pupils present EOM: EOMs intact bilaterally Neck Neck: Yes normal visual inspection and Yes full ROM Resp Effort & Inspection: normal respiratory effort and able to speak in complete sentences Neuro General: patient oriented x3, moves all extremities and CN's II-XI intact bilaterally Cranial nerves: Yes Equal, round and reactive pupils present Cognition (Neuro): normal cognition Extrem General: Yes normal to inspection, Yes full ROM and Yes capillary refill normal Psych Appearance: grossly normal Mental Status: mental status grossly normal Affect: normal affect Attitude: cooperative Thought process: Normal thought process present Thought content: Normal thought content present Insight: Good insight present (Psych) Course Course Course Narrative: 1922-- Aviva Espinosa NP EKG of this patient interpreted below. Ready for D/C Rate:58 Rhythm: SB Mobile: 70/60/62 Normal P waves. Normal SHERRIE. Normal QRS complex. ST T wave : no dep, elev qTC: 459. prior studies: similar. The study has been interpreted contemporaneously by me. Medications Administered Discontinued Medications Generic Name Dose Route Start Last Admin Trade Name Tess PRN Reason Stop Dose Admin Azithromycin 1,000 mg 08/24/25 17:47 08/24/25 18:03 Azithromycin 500 Mg Tablet PO 08/24/25 17:48 1,000 mg ONCE ONE Administration Ceftriaxone Sodium 500 mg/ 0 mg 08/24/25 17:47 08/24/25 18:00 Lidocaine HCl 1 ml IM 08/24/25 17:48 1 kit ONCE ONE Administration Methadone HCl 230 mg 08/24/25 15:15 08/24/25 15:38 Methadone Hcl 20 Mg/2 Ml Oral.Conc PO 08/24/25 15:16 230 mg ONCE ONE Administration Medical Decision Making Medical Decision Making [facility] Narrative: Patient is a 34 year old assigned female at with a history of PTSD, cocaine use disorder, and opiate use disorder on methadone, and approximately 12 weeks , presenting to the emergency department today requesting her methadone dose and vaginal spotting. Patient's physical exam was as noted in the physical exam portion of this note. Patient's blood work was unremarkable. Patient's urine showed evidence of UTI - treatment initiated Patient's CT/NG and BV swabs are pending. Patient was treated prophylactically with IM Ceftriaxone + Azithromycin. Patient's EKGis pending. Patient's OBGYN US showed an appropriate term fetus. Patient was given her dose of 230mg of Methadone. I explained my physical exam findings as well as all test results to the patient. I answered all questions asked by the patient. I stressed the importance of the patient taking her medication as directed (either prescribed or as the over the counter packaging recommends). I stressed the importance of the patient following up with her primary care provider and OBGYN. I stressed the importance of the patient returning to the emergency department immediately if her symptoms were to worsen or if she were to develop any dizziness, shortness of breath, difficulty breathing, chest pain, blurry vision, loss of vision, nausea, vomiting, abdominal pain, fever, chills, back pain, or any other complaints. Patient will be discharged after PRODUCTION TECHNOLOGIST Aviva Espinosa interprets pending EKG. Differential Diagnosis Differential Diagnoses: The differential diagnosis associated with the presentation includes Abdominal pain Methadone dosing Admission/Observation Consideration of admission/observation: Escalation of care including admission/observation considered Patient would have been admitted to the hospital had her work up had any findings where hospital admission was appropriate and her clinical presentation warranted hospital admission. Lab Data [facility] Lab Attestation statement: I reviewed the patient's lab results. My interpretation of these results are in the [facility] Rationale portion of this note. 08/24/25 17:45 08/24/25 17:45 Labs: Lab Results 08/24/25 08/24/25 Range/Units 17:20 17:45 WBC 7.5 (4.8-10.8) X10*3/uL RBC 4.87 (4.20-5.50) X10*6/uL Hgb 13.3 (12.0-16.0) g/dl Hct 40.8 (37.0-47.0) % MCV 83.8 (80.0-98.0) fL MCH 27.3 (27.0-33.0) pg MCHC 32.6 (31.0-35.0) g/dl RDW 13.4 (11.0-16.0) % Plt Count 265 D (160-400) X10*3/uL MPV 8.7 L (9.4-12.3) fL Immature Gran % (Auto) 0.8 H (0.0-0.4) % Neut % (Auto) 58.2 (45-73) % Lymph % (Auto) 34.9 (20-40) % [place] Zandt % (Auto) 4.9 (2-11) % Eos % (Auto) 0.9 (0-4) % Baso % (Auto) 0.3 (0-2) % Lymph # (Auto) 2.6 (1.2-4.9) X10*3/uL [place]t # (Auto) 0.4 (0.1-1.2) X10*3/uL Eos # (Auto) 0.1 (0.0-0.4) X10*3/uL Baso # (Auto) 0.0 (0.0-0.2) X10*3/uL Abs Immat Gran (auto) 0.06 H (0.00-0.03) X10*3/uL Absolute Neuts (auto) 4.4 (2.0-8.3) x10*3/uL Absolute Nucleated RBC 0.000 (0.0-0.012) X10*3/uL Nucleated RBC % (auto) 0.0 (0.0-0.2) /100WBC Sodium 138 (135-145) mmol/L Potassium 3.7 (3.3-5.1) mmol/L Chloride 108 (96-108) mmol/L Carbon Dioxide 22 (22-29) mmol/L Anion Gap 12 (12-20) BUN 9 (9-16) mg/dL Creatinine 0.50 (0.5-1.4) mg/dL Estim Creat Clear Calc 171.8 Estimated GFR > 60 Random Glucose 101 (60-115) mg/dL Calcium 9.0 (8.4-10.2) mg/dL Total Bilirubin 0.3 (0.0-1.0) mg/dL AST 24 (5-31) U/L ALT 25 (0-31) U/L Alkaline Phosphatase 50 (39-117) U/L Total Protein 7.5 (6.5-8.0) g/dL Albumin 4.0 (3.5-5.0) g/dL Beta HCG, Quant 27384 mIU/mL Urine Color Yellow Urine Appearance Cloudy Urine pH 8.0 (5.0-9.0) Ur Specific Tad 1.015 (1.005-1.025) Urine Protein Negative (Neg-Trace) mg/dL Urine Glucose (UA) Negative (Negative) mg/dL Urine Ketones Negative (Negative) mg/dL Urine Blood Negative (Negative) Urine Nitrite Negative (Negative) Ur Leukocyte Esterase Small (1+) H (Negative) Urine RBC 0-2 (0-2) /HPF Urine WBC 21-50 H (0-5) /HPF Ur Squamous Epith Cells 0-2 (0-2) /HPF Urine Bacteria 4+ (None Seen) Hyaline Casts 0-2 (0-2) /LPF Ur N gonorrhoeae DNA (PCR) NOT DETECTED (Not Detect.) Ur Chlamydia DNA (PCR) NOT DETECTED (Not Detect.) T. vaginalis (PCR) DETECTED A (Not Detect) Bact vaginosis (PCR) POSITIVE A (Negative) C. krusei/glabrata (PCR) NOT DETECTED (Not Detect) Melyssa group (PCR) NOT DETECTED (Not Detect) Independent Interpretation I performed an independent interpretation of an: EKG and Ultrasound Interpretation: My interpretation is in agreement with the radiologist's impression of this imaging study as written below. EXAMINATION: US FIRST TRIMESTER OB HISTORY: vaginal bleeding in early TECHNIQUE: Endovaginal scanning was performed. FINDINGS: There is a single intrauterine . No placental abnormality is identified. AUA = 11 weeks 2 days MERRILL(AUA) = 03/13/2026 GA(1st ultrasound) = 11 weeks 0 days MERRILL(1st ultrasound) = 03/15/2026 CRL: 4.29 cm Yolk Sac: seen FHR: 155 bpm Right ovary: The right ovary is not identified. Left ovary: The left ovary is not identified. Cul-de-sac: No free fluid US/US OB limited IMPRESSION: Single, live intrauterine of estimated gestational age 11 weeks, 2 days. No placental abnormality is identified. Electronically signed by: Karri Washington MD 08/24/2025 03:11 PM [facility] Dictated By: Karri Washington MD Signed By: Electronically signed by Karri Washington MD 08/24/25 2895 Radiology Impression Discussion of test interpretation with radiology: I have reviewed the radiologist's reading. Independent Historian Clinical information obtained from an independent historian. History obtained from or confirmed by: EMS (EMS provided additional history and confirmed the history provided by the patient. ) Prescription Management I considered prescription management with: Antibiotic (patient prescribed antibiotic for UTI) Discharge Plan Discharge Clinical Impression: Early stage of , Methadone dependence Patient Disposition: Home, Self-Care Instructions: (ED), Opioid Use Disorder (ED) Additional Instructions: Your urine was infected - please take your antibiotic as prescribed. We will contact you with your STI results. Your US showed a normal fetus - continue following up with your OBGYN. IF you are prescribed home medications and/or you are taking over the counter medications at home - it is very important you continue to do so as prescribed / directed unless told otherwise by a healthcare provider. Follow up with your primary care provider. Do your best to stay well hydrated and rest. Return to the emergency department immediately if your symptoms worsen or if you develop any numbness, tingling, dizziness, shortness of breath, difficulty breathing, chest pain, blurry vision, loss of vision, nausea, vomiting, abdominal pain, fever, chills, back pain, or any other complaints. L If you do not have a primary care provider - call any of the below numbers to establish and follow up with a primary care provider. [facility] Primary Care ([place]) [phone] [place] [address], [address] [facility] Primary Care ([address] [place]) [phone] [place] [address], [address] [facility], [address] [facility] Primary Care ([address] [place]) [phone] [place] [address], [address] [facility], [address] [facility] Primary Care ([place]) [phone] [place] [address] [address] [facility], [address] [facility] Family Medicine [phone] [place] [address], [id number] Please see the information below about our Patient Portal. If you are not yet enrolled in the [facility] Patient Portal, you will receive an enrollment email invitation following your visit to any [facility] care setting. You may also self-enroll in the Patient Portal by visiting our website: [email or web address] The following information is required to access the Patient Portal: - Your [facility] Medical Record Number - Your personal home email address (must match what is in your electronic medical record, Registration staff can assist with this) - Name - Date of Capabilities of the Patient Portal: - Message some providers - View upcoming appointments - Access your health summary, medical history, and visit history - View current conditions and allergies - View procedure and lab results - View your medications, including guidelines, side effects, and precautions - Complete pre-appointment questionnaires requested by your provider - Ready summary reports of your office visits and procedures To access the Patient Portal Mobile Sami, follow these directions: - Search Weft in the [employer] Store or [employer] Store - Download the Sami - Search for [facility] - Enter your login/password Prescriptions: New cefuroxime axetil 250 mg tablet 500 mg PO BID 7 Days Qty: 28 0RF No Action clonidine HCl 0.2 mg tablet 0.2 mg PO QID PRN (Reason: anxiety) 30 Days Qty: 120 0RF ibuprofen 600 mg tablet 600 mg PO Q6H PRN (Reason: fever or pain) Qty: 30 0RF PNV no.95-ferrous fumarate-FA [ Multivitamins] 28 mg iron- 800 mcg tablet 1 tab PO DAILY Qty: 90 4RF PNV no.95-ferrous fumarate-FA [ Multivitamins] 28 mg iron- 800 mcg tablet 1 tab PO DAILY 90 Days Qty: 90 0RF cephalexin 500 mg capsule 500 mg PO Q6H 5 Days Qty: 20 0RF methadone [Methadone Intensol] 10 mg/mL Concentrate 235 mg PO DAILY Interventions: ED Discharge Assessment Last Done: 08/24/25 19:31 Discharge Date/Time: 08/24/25 19:33 Print Language: Wolof
[2025-08-24 12:55] VITALS: BP 115/73; O2SAT 98
[2025-08-24 12:59] VITALS: BMI 30.6
--- NOTE | 2025-08-24 15:17 | HE.PHANOTE ---
RE: METHADONE DOSING Last dose of methadone 235 mg was given on 08/23/25 @1101 per JOY Drew at [facility] in [place] [phone]. Clinic verified with nurse Payal Mckeon that dose was split before but not anymore.
[2025-08-24] MEDS: methADONE HCl 20 MG/2 ML ORAL.CONC 230 MG PO (15:38)
[2025-08-24 17:09] VITALS: BP 109/50; PULSE 66; RESP 16; TEMP 36.6; O2SAT 97
[2025-08-24 17:29] LABS: Appearance Urine Cloudy; Glucose Urine UA Negative (Negative); PH 8.0 (5.0-9.0); Specific Gravity - Urine 1.015 (1.005-1.025); UMIC TRIGGER UACC YES
[2025-08-24 17:38] LABS: UACC Culture Trigger YES
[2025-08-24 17:50] LABS: Hematocrit 40.8 % (37.0-47.0); Hemoglobin 13.3 g/dl (12.0-16.0); Imm Gran Abs Auto 0.06 X10*3/uL (0.00-0.03); Imm Gran Pct Auto 0.8 % (0.0-0.4); Lymphocytes Absolute Auto 2.6 X10*3/uL (1.2-4.9); MANUAL DIFF FLAG NO; Mean Corpuscular HGB Conc 32.6 g/dl (31.0-35.0); Mean Corpuscular Hemoglobin 27.3 pg (27.0-33.0); Mean Corpuscular Volume 83.8 fL (80.0-98.0); NRBC Abs Auto 0.000 X10*3/uL (0.0-0.012); NRBC Pct Auto 0.0 /100WBC (0.0-0.2); Platelet Count 265 X10*3/uL (160-400); Red Blood Count 4.87 X10*6/uL (4.20-5.50); White Blood Count 7.5 X10*3/uL (4.8-10.8)
--- NOTE | 2025-08-24 17:50 | ECG_ITS ---
Test Reason : QT EVALUATION Blood Pressure : */* mmHG Vent. Rate : 60 BPM Atrial Rate : 60 BPM P-R Int : 166 ms QRS Dur : 86 ms QT Int : 570 ms P-R-T Axes : 80 59 62 degrees QTcB Int : 570 ms Normal sinus rhythm Biatrial enlargement Minimal voltage criteria for LVH, may be normal variant ( Sokolow-Sommer ) Nonspecific T wave abnormality Prolonged QT Abnormal ECG When compared with ECG of 02-Aug-2025 22:19, Nonspecific T wave abnormality, worse in Lateral leads QT has lengthened Referred By: Reanna Gilliam Electronically Signed By: Khoi Stern
[2025-08-24] MEDS: cefTRIAXone sodium 500 MG, Lidocaine HCl 1 % MPF 1 ML IM (18:00)
[2025-08-24 18:12] LABS: Alanine Aminotransferase 25 U/L (0-31); Albumin Level 4.0 g/dL (3.5-5.0); Alkaline Phosphatase 50 U/L (39-117); Anion Gap 12 (12-20); Aspartate Amino Transferase 24 U/L (5-31); Blood Urea Nitrogen 9 mg/dL (9-16); Calcium 9.0 mg/dL (8.4-10.2); Carbon Dioxide 22 mmol/L (22-29); Chloride 108 mmol/L (96-108); Creatinine Clr Calc Pharmacy 171.8; Estimated Glomerular Filt Rate > 60; Potassium 3.7 mmol/L (3.3-5.1); Sodium 138 mmol/L (135-145); Total Protein 7.5 g/dL (6.5-8.0)
[2025-08-24 19:31] VITALS: BP 109/60; PULSE 66; RESP 16; TEMP 36.6; O2SAT 97
[2025-08-24 22:49] LABS: Bacterial Vaginosis PCR POSITIVE (Negative); Candida Group PCR NOT DETECTED (Not Detect); Candida glab krusei PCR NOT DETECTED (Not Detect); Trichomonas vaginalis PCR DETECTED (Not Detect)
[2025-08-24 23:17] LABS: CT PCR Urine NOT DETECTED (Not Detect.); NG PCR Urine NOT DETECTED (Not Detect.)
== END 2025-08-24 19:33 | disposition home or self-care (01) ==
PROVIDERS: Physician Assistant Medical; Emergency Provider Emergency Medicine
DX: O26.851 Spotting complicating pregnancy, first trimester (principal); F11.20 Opioid dependence, uncomplicated; T40.2X5A Adverse effect of other opioids, initial encounter; Y92.9 Unspecified place or not applicable
CPT/HCPCS: 36415; 76815; 80053; 81001; 81515; 84702; 85025; 87086; 87088; 87186; 87491; 87591; 93005; 96372; 99284; J0696; J2003

== ENCOUNTER → 2025-08-24 13:09 | Outpatient (BNV) | payer MEDICAID, SELFPAY | PROVIDERS: Visit Provider Radiology Diagnostic Radiology | DX: O26.851 Spotting complicating pregnancy, first trimester (principal); Z3A.14 14 weeks gestation of pregnancy | CPT/HCPCS: 76815 ==

== ENCOUNTER → 2025-08-24 17:50 | Outpatient (BNV) | payer MEDICAID, SELFPAY | PROVIDERS: Emergency Provider Emergency Medicine; Visit Provider Internal Medicine Cardiovascular Disease | DX: I51.7 Cardiomegaly (principal); R00.1 Bradycardia, unspecified | CPT/HCPCS: 93010 ==